=== PATIENT | female | born 1940 | race African-American/Black ===

== ENCOUNTER 2019-03-29 19:09 | Inpatient (IN) | payer OTHER ==
[~2019-03-29] VITALS: Ht 157.5 cm; Wt 45.0 kg
[2019-03-29 19:15] VITALS: Ht 157.5 cm; Wt 45.0 kg
--- NOTE | 2019-03-29 19:18 | ERD ---
ER Documentation Chief Complaint Chief Complaint Altered level consciousness HPI The patient is a 78-year-old female, presenting to the ER because of altered level of consciousness, unknown duration when the family found her. She is awake, able to speak her name.. The history was initially obtained from the EMS, later obtained from the daughter who did not live with her, does not know much about her medical problems. I was able to speak to [facility] physician who informed me that she was discharged from [facility] about 2 weeks ago for sepsis. She complains of right hip pain Past medical history: CAD, hypertension, hypothyroidism, history of CVA, atrial fibrillation, aortic stenosis, aortic insufficiency Past surgical history: Pacemaker, thyroidectomy ROS All systems reviewed and are negative except as per history of present illness. Allergies Allergies: Coded Allergies: Penicillins (Verified Allergy, 11/18/13) PMhx/Soc History of Surgery: Yes (PACEMAKER PLACEMENT 2008, THYROIDECTOMY) Hx Cardiac Disorders: Yes Hx Miscellaneous Medical Probl: Yes (HYPERTHYROID) Hx Alcohol Use: No Hx Substance Use: No Hx Tobacco Use: No Physical Exam Vitals Vital Signs Date Temp Pulse Resp B/P (MAP) Pulse Ox O2 O2 Flow FiO2 Time Delivery Rate 03/29/19 96.4 84 24 91/64 (73) 2 Nasal 22:13 Cannula 03/29/19 85 22 88/65 (73) Room Air 2.0 22:00 03/29/19 70 29 108/54 Nasal 2.0 21:45 (72) Cannula 03/29/19 77 32 131/94 Nasal 2.0 21:15 (106) Cannula 03/29/19 71 29 94/64 (74) Nasal 2.0 21:00 Cannula 03/29/19 103 18 94 Nasal 2.0 20:42 Cannula 03/29/19 94 2.0 20:42 03/29/19 77 58/46 (50) Nasal 2.0 20:30 Cannula 03/29/19 Rebreather 15 19:25 03/29/19 96.6 71 19 85/53 (64) 96 19:15 Physical Exam Const: No acute distress. Head: Atraumatic. Eyes: Normal Conjunctiva. ENT: Normal External Ears, Nose and Mouth. Neck: Full range of motion. No meningismus. Resp: Clear to auscultation bilaterally. Cardio: Regular rate and rhythm. Abd: Soft, non distended, normal bowel sounds, non tender. Skin: No petechiae or rashes. Back: No midline or flank tenderness. Ext: No cyanosis, or edema. Neur: Awake and alert. Limited exam Psych: Unable to perform due to her condition Result Diagram: 03/29/19192103/29/191927 Results 24 hrs Laboratory Tests Test 03/29/19 19:22 03/29/19 19:28 03/29/19 19:32 03/29/19 20:45 White Blood Count 10.1 10^3/ul Red Blood Count 4.06 10^6/ul Hemoglobin 11.2 g/dl Hematocrit 37.0 % Mean Corpuscular 91.1 fl Volume Mean Corpuscular 27.6 pg Hemoglobin Mean Corpuscular 30.3 g/dl Hemoglobin Concent Red Cell 17.5 % Distribution Width Platelet Count 215 10^3/UL Mean Platelet 11.1 fl Volume Immature 4.100 % Granulocytes % Neutrophils % 52.3 % Lymphocytes % 35.0 % Monocytes % 6.1 % Eosinophils % 1.6 % Basophils % 0.9 % Nucleated Red 0.0 /100WBC Blood Cells % Immature 0.410 10^3/ul Granulocytes # Neutrophils # 5.3 10^3/ul Lymphocytes # 3.5 10^3/ul Monocytes # 0.6 10^3/ul Eosinophils # 0.2 10^3/ul Basophils # 0.1 10^3/ul Nucleated Red 0.0 10^3/ul Blood Cells # Bedside Glucose 389 mg/dL 359 mg/dL Prothrombin Time 20.6 Sec Prothrombin Time 1.6 Ratio INR International 1.76 Normalized Ratio Activated 31.[address] Time Sodium Level 132 mmol/L Potassium Level 7.1 mmol/L Chloride Level 102 mmol/L Carbon Dioxide 15 mmol/L Level Anion Gap 15 Blood Urea 53 mg/dl Nitrogen Creatinine 2.48 mg/dl Est Glomerular mL/min Filtrat Rate mL/min Glucose Level 402 mg/dl Calcium Level 9.1 mg/dl Total Bilirubin 0.6 mg/dl Direct Bilirubin 0.00 mg/dl Indirect Bilirubin 0.6 mg/dl Aspartate Amino 43 IU/L Transf (AST/SGOT) Alanine 29 IU/L Aminotransferase ( ALT/SGPT) Alkaline 107 IU/L Phosphatase Ammonia < 9 umol/l Creatine Kinase 28 IU/L Troponin I 0.021 ng/ml Total Protein 7.1 g/dl Albumin 3.8 g/dl Globulin 3.30 g/dl Albumin/Globulin 1.15 Ratio Free Thyroxine 3.60 ug/ml Index Thyroxine (T4) 8.0 ug/dl Triiodothyronine 45.0 % (T3) Uptake Digoxin Level 3.0 ng/ml Salicylates Level < 1.0 mg/dl Acetaminophen < 10.0 ug/ml Level Ethyl Alcohol < 10.0 mg/dl Level POC Venous Lactate 4.2 mmol/L Test 03/29/19 21:22 03/29/19 21:33 Urine Color YELLOW Urine Clarity SLIGHTLY CLOUDY Urine pH 5.0 Urine Specific 1.016 [place] Urine Ketones NEGATIVE mg/dL Urine Nitrite NEGATIVE mg/dL Urine Bilirubin NEGATIVE mg/dL Urine Urobilinogen NEGATIVE mg/dL Urine Leukocyte NEGATIVE Elizaebth/ul Esterase Urine Microscopic 2 /HPF RBC Urine Microscopic 4 /HPF WBC Urine Squamous FEW /HPF Epithelial Cells Urine Bacteria FEW /HPF Urine Mucus FEW /HPF Urine Hemoglobin NEGATIVE mg/dL Urine Glucose NEGATIVE mg/dL Urine Total 2+ mg/dl Protein Urine Opiates NEGATIVE Screen Urine Barbiturates NEGATIVE Urine Amphetamines NEGATIVE Screen Urine NEGATIVE Benzodiazepines Screen Urine Cocaine NEGATIVE Screen Urine Cannabinoids NEGATIVE Lactic Acid Level 7.9 mmol/L Current Medications Medications Dose Sig/Jerri Start Time Status Last (Trade) Ordered Route PRN Stop Time Admin Dose Reason Admin Sodium 1,350 ml BOLUS OVER 2 03/29/19 DC 03/29/19 Chloride HOURS STAT 19:29 19:49 (NS) IV* 03/29/19 19:30 Vancomycin 250 ml @ ONCE ONCE 03/29/19 DC 03/29/19 HCl 125 mls/hr IVPB 20:00 22:02 03/29/19 21:59 50 ml @ ONCE STAT 03/29/19 DC 03/29/19 Meropenem/Sod 100 mls/hr IVPB 19:35 20:22 ium Chloride 03/29/19 20:04 Sodium 1,000 ml @ Q1H ONCE 03/29/19 DC 03/29/19 Chloride 1,000 mls/hr IV 20:30 20:22 03/29/19 21:29 250 ml @ TITRATE IV 03/29/19 03/29/19 Norepinephrin 1.875 mls/ 20:30 20:48 e hr Albuterol 10 mg ONCE STAT 03/29/19 DC 03/29/19 (Proventil INH 20:26 20:41 0.5% (Neb)) 03/29/19 20:36 Insulin 10 unit ONCE STAT 03/29/19 DC 03/29/19 Human IVP 20:26 20:46 Regular 03/29/19 20:36 (Humulin R) Dextrose ONCE PRN 03/29/19 (D50w IV DECREASED 20:30 Syringe) GLUCOSE 03/30/19 04:00 Sodium 50 ml ONCE STAT 03/29/19 DC 03/29/19 Bicarbonate IV 20:30 20:40 (Na Bicarb 03/29/19 20:36 8.4% Syg) Sodium 1,000 ml @ [id number] IV 03/29/19 Chloride 80 mls/hr 22:59 Ondansetron 4 mg Q6H PRN 03/29/19 HCl (Zofran IV NAUSEA 23:00 Inj) AND/OR VOMITING Albuterol/ 3 ml Q4H RESP 03/30/19 Ipratropium THERAPY NEB 01:00 (Duoneb) 650 mg Q6H PRN 03/29/19 Acetaminophen PO PAIN 23:00 (Tylenol LEVEL 1-3 OR Liquid) FEVER 40 mg DAILY@06 03/30/19 Pantoprazole IV 06:00 (Protonix Iv) Vancomycin VANCOMYCIN PER 03/30/19 UNV HCl (Vanco PER PHARMACY PROTOCOL XX 00:00 Iv Per Pharmacy) Calcium 110 ml @ ONCE ONCE 03/30/19 Gluconate 1 110 mls/hr IVPB 00:00 gm/Dextrose 03/30/19 00:59 Discontinue PROTOCOL 03/30/19 Miscellaneous all previ... ONCE XX 00:00 03/30/19 00:01 Information (* Miscellaneous Pharmacy Order) Diagnostic 1 ea Q1H XX 03/30/19 Test (Pha) 00:00 (Accu-Chek) Insulin 100 ml @ 0 PER 03/30/19 Human mls/hr PROTOCOL IV 00:00 Regular 100 unit/ Sodium Chloride Treatment Per 03/30/19 Miscellaneous of protocol XX 00:00 Hypoglycemia: Information 1.BG 51... (* Miscellaneous Pharmacy Order) Dextrose 25 ml Q15M PRN 03/30/19 (D50w IV 00:00 Syringe) .DECREASED GLUCOSE Dextrose 50 ml Q15M PRN 03/30/19 (D50w IV 00:00 Syringe) .DECREASED GLUCOSE Sodium 500 ml @ Q1H ONCE 03/30/19 Chloride 500 mls/hr IV 00:00 03/30/19 00:59 Procedures/MDM [place] [address] Radiology Main Line: [phone] DIAGNOSTIC IMAGING REPORT Patient: KWAN MORAN : 1940 Age: 78 Sex: F MR #: [id number] DOS: 03/29/191937 Ordering MD: NADIA GARCIA MD Location: E/R Room/Bed: PROCEDURE: XR Hip. CLINICAL INDICATION: pain TECHNIQUE: AP and frog lateral views of the right hip were performed. COMPARISON: None. FINDINGS: No evidence of acute fracture, allowing for osteopenia. No dislocation. Mild to moderate arthrosis of the hip joint. Soft tissue calcifications over the gluteal soft tissues. IMPRESSION: No evidence of acute fracture or dislocation. Mild to moderate degenerative joint disease. RPTAT: HRGF Physician Brittany Date Time Electronically viewed and signed by Delores Stein Physician on 03/29/2019 20: 41 RF/ CC: NADIA GARCIA MD [id number] [place] [id number] Radiology Main Line: [phone] DIAGNOSTIC IMAGING REPORT Patient: KWAN MORAN : 1940 Age: 78 Sex: F MR #: [id number] DOS: 03/29/191937 Ordering MD: NADIA GARCIA MD Location: E/R Room/Bed: PROCEDURE: Pelvis x-ray CLINICAL INDICATION: pain TECHNIQUE: Single AP view of the pelvis performed. COMPARISON: None FINDINGS: No acute fracture detected, allowing for osteopenia. Mild to moderate degenerate joint disease. No acute abnormality of the soft tissues. IMPRESSION: No fracture detected, however evaluation is limited by osteopenia. 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 RPTAT: HRGF Physician Brittany Date Time Electronically viewed and signed by Delores Stein Physician on 03/29/2019 20:42 RF/ CC: NADIA GARCIA MD [id number] [place] [address] Radiology Main Line: [phone] DIAGNOSTIC IMAGING REPORT Patient: KWAN MORAN : 1940 Age: 78 Sex: F MR #: [id number] DOS: 03/29/191918 Ordering MD: NADIA GARCIA MD Location: E/R Room/Bed: PROCEDURE: CT Brain without contrast. CLINICAL INDICATION: Altered level of consciousness TECHNIQUE: A CT of the brain was performed on a multidetector CT scanner utilizing axial imaging from the skull base through the vertex without IV contrast. Multiplanar reformatted images were made. Images were reviewed on a PACS workstation. The CTDIvol is 40 mGy and the DLP is 634 mGycm. DICOM images are available. One or more of the following dose reduction techniques were utilized: 1.) Automated exposure control 2.) Adjustment of the mA +/- kV according to patient's size 3.) Use of iterative reconstruction technique. COMPARISON: Head CT November 18, 2013 FINDINGS: There has been interval insertion of an embolization coil in the vicinity of the origin of the right posterior communicating artery. No discrete extra-axial fluid collection or masses present. There is moderate diffuse cerebral volume loss with sulcal and ventricular dilatation. Ventricles are in the midline and of normal configuration. Noted is encephalomalacia and an old infarct on the inferolateral posterior left frontal lobe extending into the anterior operculum. Second chronic cortical and subcortical white matter infarct is noted in the inferolateral posterior left frontal lobe. There is a third chronic infarct involving aj and subcortical white matter of the left occipita l lobe. Periventricular white matter disease is present in both cerebral hemispheres. There is no associated mass effect. There is preservation of normal aj-white differentiation. No intracranial hemorrhage is seen. There is normal aeration in the paranasal sinuses. IMPRESSION: No acute abnormality. No intracranial hemorrhage, mass or evidence of acute transcortical infarct. 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 Clinical correlation suggested. Chronic infarct inferolateral posterior left frontal lobe, posterior lateral left frontal lobe extending into the insula and left occipital lobe each of which demonstrates encephalomalacia. .Hakan Shultz MD, Date Time Electronically viewed and signed by .Hakan Shultz MD, MD on 03/29/2019 22:34 .A/ CC: NADIA GARCIA MD [id number] [place] [address] Radiology Main Line: [phone] DIAGNOSTIC IMAGING REPORT Patient: KWAN MORAN : 1940 Age: 78 Sex: F MR #: [id number] DOS: 03/29/191918 Ordering MD: NADIA GARCIA MD Location: E/R Room/Bed: PROCEDURE: XR Chest. CLINICAL INDICATION: Sepsis TECHNIQUE: Frontal chest x-ray was obtained. COMPARISON: Chest x-ray November 18, 2013 FINDINGS: The heart is enlarged. Mediastinum is not widened. No hilar masses seen. Lungs are clear of any infiltrates. There is no effusion or pneumothorax. The osseous structures appear normal. There is a dual lead pacemaker. Clips are seen at the right base of the neck. IMPRESSION: Cardiomegaly. No pneumonia or failure. .Hakan Shultz MD, Date Time Electronically viewed and signed by .Hakan Shultz MD, on 03/29/2019 20:19 .A/ CC: NADIA GARCIA MD [id number] EKG: Read by emergency physician Rate/Rhythm: Paced rhythm at 70 beats/min No further attempt to interpret the EKG MEDICAL MAKING DECISION: The patient is a 78-year-old female, presenting with acute encephalopathy, acute septic shock, acute kidney injury, acute hyperkalemia, acute digoxin toxicity. He was treated with normal saline 30 mm/kg IV, meropenem IV, vancomycin IV Levophed drip for acute septic shock, Nix catheter for acute kidney injury, albuterol 10 mg nebulizer/10 units of regular insulin/1 amp of them back off IV for acute hypokalemia (she does not require D50 because her glucose was 402) The differential diagnoses considered include but are not limited to septic encephalopathy, metabolic encephalopathy, UTI, pneumonia, aspiration pneumonia, TIA, CVA MDM: Patient's infectious symptoms have not stabilized and the patient is at risk of rapid decompensation. The patient will be admitted for careful hydration, antibiotic therapy, and infectious source control. SEVERE SEPSIS CRITERIA: Infectious source: unknown End organ damage indicated by: [Lactate > 2.0 mmol/L Hypotension (SBP < 90 or >40 mmHG drop or MAP < 65) SEPSIS MANAGEMENT Time of recognition of septic shock: 7:35p 3 HOUR BUNDLE Blood cultures x 2 before broad-spectrum antibiotics: [Yes] 30 ml/kg NS bolus [Completed] Initial lactate []4.2 Repeat lactate Pending SEPTIC SHOCK ASSESSMENT: Y lactic acid > 4.0 Y Persistent hypotension (SBP < 90 or 40 mmHg drop, MAP < 65) despite 30 mL/kg IV fluid bolus VOLUME REASSESSMENT FOR SEPTIC SHOCK: Reevaluation Time: []22:00 hr Temp []96.6, BP []88/65, HR [], RR[]85, Pox []95% 2L Heart [Regular rate & rhythm] Lungs [No crackles] Skin [Warm & dry] Cap Refill [Less than 2 seconds] Peripheral pulses [Radially present] PERSISTENT HYPOTENSION TREATMENT: Comfort care Y Central line RIJ Vasopressor started Levophed drip I considered further perfusion assessment with CVP measurement, SCVO2, bedside ultrasound volume assessment, passive leg raise, trial of further fluid bolus. And proceeded with [30 ml/kg fluid bolus of NSS, broad spectrum antibiotics, and admission.] CRITICAL CARE Critical care time [35] minutes Emergent fluid management while maintaining close respiratory support. Provision of immediate and broad-spectrum antibiotic therapy. Simultaneous assessment for possible sources in order to direct targeted therapy. Consi deration for invasive and chemical support to prevent cardiopulmonary collapse. Critical care time is independent of procedures performed. Central Line Placement by me: After the patient was consented and a time out was performed, appropriate hand hygiene was performed, the skin site was fully prepped and maximal sterile barrier technique was employed where the patient was sterilely draped, and the provider wore a mask and sterile gown and gloves. Anesthesia: 1% lidocaine locally Location: RIJ We could not advance the wire even though there are good venous return from the angiocatheter. She now has has a good rapid IJ angiocatheter for usage. ED Ultrasound: Central line placed by me using concurrent ultrasound guidance done using sterile technique. Real time image archived in the medical record confirms vascular anatomy. Departure Diagnosis: Primary Impression: Septic shock Additional Impressions: Hyperkalemia YAN (acute kidney injury) Digoxin toxicity Encephalopathy acute Anemia NADIA GARCIA MD March 29, 2019 19:18
[2019-03-29] MEDS ORDERED: SODIUM CHLORIDE 0.9% 1L BAG IV* STA (19:29)
[2019-03-29] MEDS ORDERED: MEROPENEM 1 GM/50ML(PMX) 50 ML IVPB STA (19:35)
[2019-03-29] MEDS ORDERED: VANCOMYCIN 1 GM (PMX) 250 ML IVPB ONE (20:00)
[2019-03-29] MEDS ORDERED: INSULIN REGULAR, HUMAN 100 UNIT/1 ML 3ML VIAL IVP STA (20:26)
[2019-03-29] MEDS ORDERED: ALBUTEROL 0.5% (NEB) 2.5 MG/0.5 ML AMP INH STA (20:26)
[2019-03-29] MEDS ORDERED: NORepinephrine 8MG/250 ML (PMX 250 ML IV SCH (20:30)
[2019-03-29] MEDS ORDERED: DEXTROSE 50% 50 ML SYRINGE IV PRN (20:30)
[2019-03-29] MEDS ORDERED: NA BICARBONATE 8.4% 50 ML SYG IV STA (20:30)
[2019-03-29] MEDS ORDERED: SOD CHLORIDE 0.9% 1,000 ML IV ONE (20:30)
[2019-03-29] MEDS ORDERED: ONDANSETRON 4 MG INJ IV PRN (23:00)
[2019-03-29] MEDS ORDERED: ACETAMINOPHEN 650MG/20.3ML CUP PO PRN (23:00)
[2019-03-30] VITALS (52 sets, daily range): BP systolic 85–161; BP diastolic 43–110; PULSE 70–121; RESP 13–34
[2019-03-30] MEDS ORDERED: INSULIN HUMAN REGULAR 100 UNIT in SOD CHLORIDE 0.9% 99 ML IV SCH ×2
[2019-03-30] MEDS ORDERED: VANCOMYCIN IV PER PHARMACY XX SCH
[2019-03-30] MEDS ORDERED: CALCIUM GLUCONATE 10% 1 GM in DEXTROSE 5% 100 ML IVPB ONE ×2
[2019-03-30] MEDS ORDERED: SOD CHLORIDE 0.9% 500 ML IV ONE
[2019-03-30] MEDS: SOD CHLORIDE 0.9% 1,000 ML IV SCH ×2 (00:38→12:57)
[2019-03-30] MEDS ORDERED: DIGO125T PO (00:44)
[2019-03-30] MEDS ORDERED: LOSA50TA14 PO (00:44)
[2019-03-30] MEDS ORDERED: PRAM0.12 PO (00:44)
[2019-03-30] MEDS ORDERED: FAMO20TA18 PO (00:44)
[2019-03-30] MEDS ORDERED: CEFP200T2 PO (00:44)
[2019-03-30] MEDS ORDERED: VERA240T13 PO (00:44)
[2019-03-30] MEDS ORDERED: ATOR20TA65 PO (00:44)
[2019-03-30] MEDS ORDERED: METO-429 PO (00:44)
[2019-03-30] MEDS ORDERED: POTA10TA2 PO (00:44)
[2019-03-30] MEDS ORDERED: HYDR25TA6 PO (00:44)
[2019-03-30] MEDS ORDERED: MONT10TA24 PO (00:44)
--- NOTE | 2019-03-30 00:57 | HP ---
Date/Time of Note Date/Time of Note DATE: 03/30/19 TIME: 00:56 Assessment/Plan VTE Prophylaxis SCD applied (from Nsg): Yes Pharmacological prophylaxis: NA/contraindicated Pharm contraindication: low risk/ambulating Lines/Catheters IV Catheter Type (from Nrsg): Central Line Central line still needed: Yes (critical condition) Urinary Cath still in place: Yes Reason Cath still needed: other (indicate) (critical condition) Assessment/Plan Hospital Course This is a 78-year-old female being admitted to the ICU floor for: #1 septic shock: Broad-spectrum antibiotic to vancomycin and meropenem, patient has a penicillin allergy. Source unknown at the current time. Will await culture results. Patient started on pressor support with levophed. Trend lactic acid levels initial was elevated at 7. IV fluid hydration with normal saline. #2 suspect digoxin toxicity: Patient's digoxin level was 3. Patient did present with hyperkalemia 7. Currently is a paced rhythm. We will give the patient a dose of DigiFab 0.5. We will check a digoxin level in the a.m. Monitor closely in the ICU. Will consult cardiology. #3 hyperkalemia: Secondary to digoxin, acute on chronic kidney injury, potassium supplements patient did receive insulin dextrose and albuterol in the emergency department. I will give a dose of calcium gluconate. We will repeat BMP and assess potassium levels and treat as indicated. #4 acute versus acute on chronic kidney disease: Previous Creatinine was from 2013. Will treat with IV fluid hydration. Will monitor renal function test. We will check a renal ultrasound. Urine microscope and urinalysis. We will t reat the potassium with the above. #5 hyponatremia: Likely secondary dehydration. Will hydrate patient with normal saline. Monitor sodium levels. #6 uncontrolled blood sugars: Patient does not appear to be in any DKA. We will put the patient on insulin GGT, will check hemoglobin A1c #7 metabolic acidosis: Secondary likely to underlying septic shock, acute on chronic kidney disease. She does not appear to be DKA. Will treat with IV fluids, antibiotics and monitor. #8 history of atrial fibrillation: Patient is currently paced rhythm: We will hold dig secondary to elevated digoxin levels. Will treat with DigiFab. Currently not on any anticoagulation #9 coronary artery disease: We will need to confirm patient's home medications and resume as indicated we will check an echocardiogram. #10 hypothyroidism: We will check a TSH, will need to confirm patient's home medications #11 history of CVA: Patient appears to be bedridden. #12 aortic stenosis: We will check an echocardiogram. #13 DVT GI prophylaxis: SCDs, Protonix Further treatment strategy will be implemented as per the clinical course. Greater than 45 minutes [facility] Result Diagram: 03/29/19192103/29/198 Results 24hrs Laboratory Tests Test 03/29/19 19:22 03/29/19 19:28 03/29/19 19:32 03/29/19 20:45 White Blood 10.1 Count Red Blood Count 4.06 L Hemoglobin 11.2 L Hematocrit 37.0 Mean Corpuscular 91.1 Volume Mean Corpuscular 27.6 L Hemoglobin Mean Corpuscular 30.3 L Hemoglobin Divya nt Red Cell 17.5 H Distribution Width Platelet Count 215 Mean Platelet 11.1 H Volume Immature 4.100 H Granulocytes % Neutrophils % 52.3 Lymphocytes % 35.0 Monocytes % 6.1 Eosinophils % 1.6 Basophils % 0.9 Nucleated Red 0.0 Blood Cells % Immature 0.410 H Granulocytes # Neutrophils # 5.3 Lymphocytes # 3.5 H Monocytes # 0.6 Eosinophils # 0.2 Basophils # 0.1 Nucleated Red 0.0 Blood Cells # Bedside Glucose 389 H 359 H Prothrombin Time 20.6 H Prothrombin Time 1.6 Ratio INR 1.76 International Normalized Ratio Activated 31.5 Partial Thrombop last Time Sodium Level 132 L Potassium Level 7.1 *H Chloride Level 102 Carbon Dioxide 15 L Level Anion Gap 15 H Blood Urea 53 H Nitrogen Creatinine 2.48 H Est Glomerular Filtrat Rate mL/min Glucose Level 402 *H Calcium Level 9.1 Total Bilirubin 0.6 Direct Bilirubin 0.00 Indirect 0.6 Bilirubin Aspartate Amino 43 Transf (AST/SGOT ) Alanine 29 Aminotransferase (ALT/SGPT) Alkaline 107 Phosphatase Ammonia < 9 L Creatine Kinase 28 Troponin I 0.021 Total Protein 7.1 Albumin 3.8 Globulin 3.30 H Albumin/Globulin 1.15 Ratio Free Thyroxine 3.60 Index Thyroxine (T4) 8.0 Triiodothyronine 45.0 H (T3) Uptake Digoxin Level 3.0 *H Salicylates < 1.0 L Level Acetaminophen < 10.0 L Level Ethyl Alcohol < 10.0 H Level POC Venous 4.2 *H Lactate Test 03/29/19 21:22 03/29/19 21:33 03/29/19 22:59 03/29/19 23:34 Urine Color YELLOW Urine Clarity SLIGHTLY CLOUDY A Urine pH 5.0 Urine Specific 1.016 [place] Urine Ketones NEGATIVE Urine Nitrite NEGATIVE Urine Bilirubin NEGATIVE Urine NEGATIVE Urobilinogen Urine Leukocyte NEGATIVE Esterase Urine 2 Microscopic RBC Urine 4 Microscopic WBC Urine Squamous FEW Epithelial Cells Urine Bacteria FEW A Urine Mucus FEW A Urine Hemoglobin NEGATIVE Urine Glucose NEGATIVE Urine Total 2+ H Protein Urine Opiates NEGATIVE Screen Urine NEGATIVE Barbiturates Urine NEGATIVE Amphetamines Screen Urine NEGATIVE Benzodiazepines Screen Urine Cocaine NEGATIVE Screen Urine NEGATIVE Cannabinoids Lactic Acid 7.9 *H 7.1 *H Level Blood Gas Blood arterial Specimen Source Arterial Blood 03/29/2019 11:48 Date Drawn :00 PM Arterial Blood 7.280 *L pH (Temp corrected) Arterial Blood 50.2 H pCO2 (Temp correct) Arterial Blood 58.5 L pO2 (Temp corrected) Arterial Blood 23.1 HCO3 Arterial Blood -4.1 L Base Excess Arterial Blood 85.6 L Oxygen Saturatio n Rush Test N/A Arterial Blood LB Gas Puncture Site Arterial 0.1 Blood Carboxyhem oglobin Arterial Blood 0.2 Methemoglobin Blood Gas A-a O2 161.7 H Differential Oxyhemoglobin 85.3 L Percent Blood Gas 37.0 Temperature Blood Gas NASAL CANNULA Modality FiO2 39.0 Blood Gas Franck PETTY RN Critical Value Read Back Blood Gas RR Notified Whom Blood Gas 03/30/2019 12:00 Notified Time :00 AM HPI/ROS Admit Date/Time Admit Date/Time Hx of Present Illness cc: altered Chief the following history was obtained from the ED physician documentation, as patient was unable to give adequate history given her clinical condition The patient is a 78-year-old female, presenting to the ER because of altered level of consciousness, unknown duration when the family found her. Patient was awake and alert at the bedside, she was able to state her name. As per the ED physician, the history was initially obtained from the EMS, later obtained from the daughter who did not live with her, does not know much about her medical problems. I was able to speak to [facility] physician who informed ED physician that she was discharged from [facility] about 2 weeks ago for sepsis. Patient also was complaining of right hip pain. Patient was noted to be in sepsis with severely elevated lactic acid. Patient also had a digoxin level that was drawn which came back elevated at 3. Patient was started on levophed, central line was also placed by the ED physician. Allergies: Penicillin Medications: See MAR ROS Subjective hx not possible: pt critical status (Unable to provide adequate history, patient alert) PMH/Family/Social Past Medical History CAD, hypertension, hypothyroidism, history of CVA, atrial fibrillation, aortic stenosis Medications Current Medications Norepinephrine 250 ml @ 1.875 mls/ hr TITRATE IV Last administered on 03/29/19at 20:48; Admin Dose 1.875 MLS/HR; Start 03/29/19 at 20:30 Dextrose (D50w Syringe) ONCE PRN IV DECREASED GLUCOSE; Start 03/29/19 at 20:30; Stop 03/30/19 at 04:00 Sodium Chloride 1,000 ml @ 80 mls/hr [id number] IV Last administered on 03/30/19at 00:38; Admin Dose 80 MLS/HR; Start 03/29/19 at 22:59 Ondansetron HCl (Zofran Inj) 4 mg Q6H PRN IV NAUSEA AND/OR VOMITING; Start 03/29/19 at 23:00 Albuterol/ Ipratropium (Duoneb) 3 ml Q4H RESP THERAPY NEB ; Start 03/30/19 at 01:00 Acetaminophen (Tylenol Liquid) 650 mg Q6H PRN PO PAIN LEVEL 1-3 OR FEVER; Start 03/29/19 at 23:00 Pantoprazole (Protonix Iv) 40 mg DAILY@06 IV ; Start 03/30/19 at 06:00 Vancomycin HCl (Vanco Iv Per Pharmacy) VANCOMYCIN PER PHARMACY PER PROTOCOL XX ; Start 03/30/19 at 00:00 Calcium Gluconate 1 gm/Dextrose 110 ml @ 110 mls/hr ONCE ONCE IVPB Last administered on 03/30/19at 00:54; Admin Dose 110 MLS/HR; Start 03/30/19 at 00:00; Stop 03/30/19 at 00:59 Diagnostic Test (Pha) (Accu-Chek) 1 ea Q1H XX ; Start 03/30/19 at 00:00 Insulin Human Regular 100 unit/ Sodium Chloride 100 ml @ 0 mls/hr PER PROTOCOL IV ; Start 03/30/19 at 00:00 Miscellaneous Information (* Miscellaneous Pharmacy Order) Treatment of Hypoglycemia: 1.BG 51... Per protocol XX ; Start 03/30/19 at 00:00 Dextrose (D50w Syringe) 25 ml Q15M PRN IV .DECREASED GLUCOSE; Start 03/30/19 at 00:00 Dextrose (D50w Syringe) 50 ml Q15M PRN IV .DECREASED GLUCOSE; Start 03/30/19 at 00:00 Sodium Chloride 500 ml @ 500 mls/hr Q1H ONCE IV Last administered on 03/30/19at 00:38; Admin Dose 500 MLS/HR; Start 03/30/19 at 00:00; Stop 03/30/19 at 00:59 Digoxin Immune MARIA VICTORIA 0.5 vial/ Sodium Chloride 50 ml @ 100 mls/hr ONCE ONCE IVPB ; Start 03/30/19 at 01:00; Stop 03/30/19 at 01:29; Status UNV Coded Allergies: Penicillins (Unverified Allergy, Unknown, 03/30/19) Past Surgical History pacemaker, thyroidectomy Family History Significant Family History: other (Unknown) Social History Smoking Status: Unknown if ever smoked Drug Use: none Exam/Review of Systems Vital Signs Vitals Vital Signs Date Temp Pulse Resp B/P (MAP) Pulse Ox O2 O2 Flow FiO2 Time Delivery Rate 03/30/19 78 79/52 (61) Nasal 2.0 00:34 Cannula 03/30/19 31 00:00 03/29/19 96.4 2 22:13 Intake and Output 03/29/19 03/29/19 03/30/19 1515:00 23:00 07:00 IntakeIntake Total 2300 ml BalanceBalance 2300 ml Exam Exam General: Patient currently lying in bed in no acute distress, she does appear cold to touch HEENT: Atraumatic, normocephalic. The pupils are equal, round and reactive. Extraocular motor are intact Neck: Supple with full range of motion. No rigidity or meningismus Chest: Nontender, right subclavian central line Lungs: Clear to auscultation bilaterally no crackles rales or wheezing Heart: Paced rhythm Abdomen: Soft , nontender, nondistended , bowel sounds are present. No guarding no rebound tenderness , No masses or organomegaly. No costovertebral temporal angle mass Extremities: Normal to inspection, no edema no cyanosis Neurologic: Normal mental status, speech normal, cranial nerves II through XII are intact, motor and sensory are intact, Additional Comments PROCEDURE: XR Hip. CLINICAL INDICATION: pain TECHNIQUE: AP and frog lateral views of the right hip were performed. COMPARISON: None. FINDINGS: No evidence of acute fracture, allowing for osteopenia. No dislocation. Mild to moderate arthrosis of the hip joint. Soft tissue calcifications over the gluteal soft tissues. IMPRESSION: No evidence of acute fracture or dislocation. Mild to moderate degenerative joint disease. RPTAT: HRGF Physician Brittany Date Time Electronically viewed and signed by Physician Brittany on 03/29/2019 20 :41 RF/ CC: NADIA GARCIA MD [id number] PROCEDURE: Pelvis x-ray CLINICAL INDICATION: pain TECHNIQUE: Single AP view of the pelvis performed. COMPARISON: None FINDINGS: No acute fracture detected, allowing for osteopenia. Mild to moderate degenerate joint disease. No acute abnormality of the soft tissues. IMPRESSION: No fracture detected, however evaluation is limited by osteopenia. 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 RPTAT: HRGF Physician Brittany Date Time Electronically viewed and signed by Physician Brittany on 03/29/2019 20:42 RF/ CC: NADIA GARCIA MD [id number] PROCEDURE: CT Brain without contrast. CLINICAL INDICATION: Altered level of consciousness TECHNIQUE: A CT of the brain was performed on a multidetector CT scanner utilizing axial imaging from the skull base through the vertex without IV contrast. Multiplanar reformatted images were made. Images were reviewed on a PACS workstation. The CTDIvol is 40 mGy and the DLP is 634 mGycm. DICOM images are available. One or more of the following dose reduction techniques were utilized: 1.) Automated exposure control 2.) Adjustment of the mA +/- kV according to patient's size 3.) Use of iterative reconstruction technique. COMPARISON: Head CT November 18, 2013 FINDINGS: There has been interval insertion of an embolization coil in the vicinity of the origin of the right posterior communicating artery. No discrete extra-axial fluid collection or masses present. There is moderate diffuse cerebral volume loss with sulcal and ventricular dilatation. Ventricles are in the midline and of normal configuration. Noted is encephalomalacia and an old infarct on the inferolateral posterior left frontal lobe extending into the anterior operculum. Second chronic cortical and subcortical white matter infarct is noted in the inferolateral posterior left frontal lobe. There is a third chronic infarct involving aj and subcortical white matter of the left occipital lobe. Periventricular white matter disease is present in both cerebral hemispheres. There is no associated mass effect. There is preservation of normal aj-white differentiation. No intracranial hemorrhage is seen. There is normal aeration in the paranasal sinuses. IMPRESSION: No acute abnormality. No intracranial hemorrhage, mass or evidence of acute transcortical infarct. 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 Clinical correlation suggested. Chronic infarct inferolateral posterior left frontal lobe, posterior lateral left frontal lobe extending into the insula and left occipital lobe each of which demonstrates encephalomalacia. .Hakan Shultz MD, Date Time Electronically viewed and signed by .Hakan Shultz MD, on 03/29/2019 22:34 .A/ CC: NADIA GARCIA MD [id number] PROCEDURE: XR Chest. CLINICAL INDICATION: Sepsis TECHNIQUE: Frontal chest x-ray was obtained. COMPARISON: Chest x-ray November 18, 2013 FINDINGS: The heart is enlarged. Mediastinum is not widened. No hilar masses seen. Lungs are clear of any infiltrates. There is no effusion or pneumothorax. The osseous structures appear normal. There is a dual lead pacemaker. Clips are seen at the right base of the neck. IMPRESSION: Cardiomegaly. No pneumonia or failure. .Hakan Shultz MD, Date Time Electronically viewed and signed by .Hakan Shultz MD, on 03/29/2019 20:19 .A/ CC: NADIA GARCIA MD [id number] MILVIA GRAY March 30, 2019 00:57
[2019-03-30] MEDS ORDERED: DIGOXIN IMMUNE FAB (OVINE) 0.5 VIAL in SOD CHLORIDE 0.9% 50 ML IVPB ONE ×2 (01:00→09:00)
[2019-03-30] MEDS: ALBUTEROL/IPRATROPIUM (NEB) 3 ML AMP NEB SCH ×6 (01:00→22:09)
[2019-03-30] MEDS ORDERED: PHENYLephrine 20MG IN 250 ML 250 ML IV SCH (01:00)
[2019-03-30] MEDS: ACCU-CHEK XX SCH ×10 (01:00→20:00)
--- NOTE | 2019-03-30 01:37 | EN ---
Date/Time of Note Date/Time of Note DATE: 03/30/19 TIME: 01:36 ER Progress Note On-call radiology called to notify me that the central line was pointing cephalad and will need to be repositioned/replaced. I spoke to the patient and let her know the urgency of the situation and consented her verbally for a right subclavian line given that her blood pressure was precipitously low. Central Line Placement by me: Patient consented, sterilely draped, full prep, gown, glove, mask, time out performed. Anesthesia: 1% lidocaine locally Location: Right subclavian Device: Multiple lumen Technique: Seldinger technique. Secured with suture. Results: Venous return from all ports with easy saline flush. No complications. wire retrieved and disposed of. [Chest X-ray 1V Interpreted by me: Central line in SVC, Normal soft tissue, No evidence of pneumothorax.] LO MUIR March 30, 2019 01:37
[2019-03-30] MEDS ORDERED: ALBUTEROL 0.083% (NEB) 2.5 MG/3 ML AMP HHN ONE (02:48)
[2019-03-30] MEDS ORDERED: INSULIN REGULAR, HUMAN 100 UNIT/1 ML 3ML VIAL IVP ONE (02:52)
[2019-03-30] MEDS ORDERED: DEXTROSE 50% 50 ML SYRINGE IV PRN ×3 (03:00)
[2019-03-30] MEDS ORDERED: SODIUM POLYSTYRENE 15 GM KIT (POWDER + SORBITOL) PO ONE (03:00)
[2019-03-30] MEDS ORDERED: PANTOPRAZOLE 40 MG INJ IV SCH (06:00)
--- NOTE | 2019-03-30 07:59 | CONS ---
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 neck is supple doubt pt has meningitis AMS can be part of her dig toxicity 2) sepsis with elevated lactic acid continue with vanco/merrem but currently not finding a source for an infection CXR was neg, u/a was fairly benign too, abd exam is unimpressive and doubt she has meningitis hypoperfusion is part of dig toxicity and may be the cause of her elevated lactic acid I have ordered procalcitonin 3) Dig toxicity with elevated potassium AMS and hypoperfusion are also the hallmarks for dig toxicity 4) renal insufficiency no baseline creatinine is noted but in light of dig toxicity there is likely an acute component u/a does not suggest infection 5) hypothermia this has improved and cause is not elucidated yet 6) CAD with pacer troponin was neg 7) hypothyroidism Consultation Date/Type/Reason Admit Date/Time Date of Consultation: March 30, 2019 Type of Consult ID Date/Time of Note DATE: 03/30/19 TIME: 07:49 Hx of Present Illness pt was admitted due to AMS pt is reported to live with son but son has not called back to hospital no reports of vomiting pt says yes to everything, so unable to get hx from pt no diarrhea reported pt is agitated but looks comfortable Past Medical History CAD, HTN, hypothyroidsim, CVA, a-fib, Aostenosis Home Meds Reported Medications Cefpodoxime Proxetil* (Cefpodoxime Proxetil*) 200 Mg Tablet, 200 MG PO Q12H 03/30/19 Hydrochlorothiazide (Hydrochlorothiazide) 25 Mg Tablet, 25 MG PO QAM for 100 Days, #50 03/30/19 Potassium Chloride (K-Tab) 10 Meq Tablet.sa, 30 MEQ PO BID for 100 Days, #600 03/30/19 Verapamil Hcl* (Verapamil ER*) 240 Mg Tablet.er, 240 MG PO QAM for 100 Days, #100 03/30/19 Montelukast Sodium* (Montelukast Sodium*) 10 Mg Tablet, 10 MG PO DAILY for 90 Days, #90 03/30/19 Losartan Potassium* (Losartan Potassium*) 50 Mg Tablet, 50 MG PO BID for 23 Days, #46 03/30/19 Famotidine* (Famotidine*) 20 Mg Tablet, 20 MG PO BID for 23 Days, #46 03/30/19 Digoxin* (Digitek*) 125 Mcg Tablet, 125 MCG PO QAM for 7 Days 03/30/19 Metoprolol Tartrate* (Lopressor*) 50 Mg Tab, 50 MG PO BID for 23 Days, #46 03/30/19 Atorvastatin Calcium (Atorvastatin Calcium) 20 Mg Tablet, 20 MG PO DAILY for 23 Days, #23 03/30/19 Pramipexole* (Pramipexole*) 0.125 Mg Tablet, 1 TAB PO BID TAKE 1 TABLET MY MOUTH ABOUT 45MIN AFTER DINNER and TAKE 1 TAB BEFORE SLEEP 03/30/19 Medications Current Medications Norepinephrine 250 ml @ 1.875 mls/ hr TITRATE IV Last administered on 03/29/19at 20:48; Admin Dose 1.875 MLS/HR; Start 03/29/19 at 20:30 Sodium Chloride 1,000 ml @ 80 mls/hr [id number] IV Last administered on 03/30/19at 00:38; Admin Dose 80 MLS/HR; Start 03/29/19 at 22:59 Ondansetron HCl (Zofran Inj) 4 mg Q6H PRN IV NAUSEA AND/OR VOMITING; Start 03/29/19 at 23:00 Albuterol/ Ipratropium (Duoneb) 3 ml Q4H RESP THERAPY NEB Last administered on 03/30/19at 06:01; Admin Dose 3 ML; Start 03/30/19 at 01:00 Acetaminophen (Tylenol Liquid) 650 mg Q6H PRN PO PAIN LEVEL 1-3 OR FEVER; Sta rt 03/29/19 at 23:00 Pantoprazole (Protonix Iv) 40 mg DAILY@06 IV Last administered on 03/30/19at 06: 00; Admin Dose 40 MG; Start 03/30/19 at 06:00 Vancomycin HCl (Vanco Iv Per Pharmacy) VANCOMYCIN PER PHARMACY PER PROTOCOL XX ; Start 03/30/19 at 00:00 Miscellaneous Information (* Miscellaneous Pharmacy Order) Treatment of Hypoglycemia: 1.BG 51... Per protocol XX ; Start 03/30/19 at 00:00 Dextrose (D50w Syringe) 25 ml Q15M PRN IV .DECREASED GLUCOSE Last administered on 03/30/19at 03:29; Admin Dose 25 ML; Start 03/30/19 at 00:00 Dextrose (D50w Syringe) 50 ml Q15M PRN IV .DECREASED GLUCOSE; Start 03/30/19 at 00:00 Phenylephrine HCl 250 ml @ 75 mls/hr TITRATE IV ; Start 03/30/19 at 01:00 Dextrose (D50w Syringe) ONCE PRN IV DECREASED GLUCOSE; Start 03/30/19 at 03:00 Diagnostic Test (Pha) (Accu-Chek) 1 ea Q4H XX ; Start 03/30/19 at 08:00 Allergies: Coded Allergies: Penicillins (Unverified Allergy, Unknown, 03/30/19) Past Surgical History thyroidectomy, pacer Social History Smoking Status: Unknown if ever smoked Drug Use: none Exam/Review of Systems Exam Vitals Vital Signs Date Temp Pulse Resp B/P (MAP) Pulse Ox O2 O2 Flow FiO2 Time Delivery Rate 03/30/19 77 19 100 07:00 03/30/19 111/61 06:45 (78) 03/30/19 21 06:02 03/30/19 97.4 04:00 03/30/19 Nasal 2.0 02:30 Cannula Intake and Output 03/29/19 03/29/19 03/30/19 1515:00 23:00 07:00 IntakeIntake Total 2300 ml 396.95 ml OutputOutput Total 120 ml BalanceBalance 2300 ml 276.95 ml Constitutional: alert, other (pt was calm at first but got more agitated with time) Head: normocephalic Eyes: nl sclera ENMT: mucosa pink and moist, other (neck was supple) Respiratory: clear to auscultation Cardiovascular: regular rate and rhythm Gastrointestinal: soft, non-tender Musculoskeletal: nl extremities to inspection Neurological: other (moves all extremities) Skin: other (stage II reported on coccyx) Results Result Diagram: 03/30/19 0530 03/30/19 0530 Results 24hrs Laboratory Tests Test 03/29/19 19:22 03/29/19 19:28 03/29/19 19:32 03/29/19 20:45 White Blood 10.1 Count Red Blood Count 4.06 L Hemoglobin 11.2 L Hematocrit 37.0 Mean Corpuscular 91.1 Volume Mean Corpuscular 27.6 L Hemoglobin Mean Corpuscular 30.3 L Hemoglobin Divya nt Red Cell 17.5 H Distribution Width Platelet Count 215 Mean Platelet 11.1 H Volume Immature 4.100 H Granulocytes % Neutrophils % 52.3 Lymphocytes % 35.0 Monocytes % 6.1 Eosinophils % 1.6 Basophils % 0.9 Nucleated Red 0.0 Blood Cells % Immature 0.410 H Granulocytes # Neutrophils # 5.3 Lymphocytes # 3.5 H Monocytes # 0.6 Eosinophils # 0.2 Basophils # 0.1 Nucleated Red 0.0 Blood Cells # Bedside Glucose 389 H 359 H Prothrombin Time 20.6 H Prothrombin Time 1.6 Ratio INR 1.76 International Normalized Ratio Activated 31.5 Partial Thrombop last Time Sodium Level 132 L Potassium Level 7.1 *H Chloride Level 102 Carbon Dioxide 15 L Level Anion Gap 15 H Blood Urea 53 H Nitrogen Creatinine 2.48 H Est Glomerular Filtrat Rate mL/min Glucose Level 402 *H Calcium Level 9.1 Total Bilirubin 0.6 Direct Bilirubin 0.00 Indirect 0.6 Bilirubin Aspartate Amino 43 Transf (AST/SGOT ) Alanine 29 Aminotransferase (ALT/SGPT) Alkaline 107 Phosphatase Ammonia < 9 L Creatine Kinase 28 Troponin I 0.021 Total Protein 7.1 Albumin 3.8 Globulin 3.30 H Albumin/Globulin 1.15 Ratio Free Thyroxine 3.60 Index Thyroxine (T4) 8.0 Triiodothyronine 45.0 H (T3) Uptake Digoxin Level 3.0 *H Salicylates < 1.0 L Level Acetaminophen < 10.0 L Level Ethyl Alcohol < 10.0 H Level POC Venous 4.2 *H Lactate Test 03/29/19 21:22 03/29/19 21:33 03/29/19 23:34 03/30/19 01:04 Urine Color YELLOW Urine Clarity SLIGHTLY CLOUDY A Urine pH 5.0 Urine Specific 1.016 [place] Urine Ketones NEGATIVE Urine Nitrite NEGATIVE Urine Bilirubin NEGATIVE Urine NEGATIVE Urobilinogen Urine Leukocyte NEGATIVE Esterase Urine 2 Microscopic RBC Urine 4 Microscopic WBC Urine Squamous FEW Epithelial Cells Urine Bacteria FEW A Urine Mucus FEW A Urine Hemoglobin NEGATIVE Urine Glucose NEGATIVE Urine Total 2+ H Protein Urine Opiates NEGATIVE Screen Urine NEGATIVE Barbiturates Urine NEGATIVE Amphetamines Screen Urine NEGATIVE Benzodiazepines Screen Urine Cocaine NEGATIVE Screen Urine NEGATIVE Cannabinoids Lactic Acid 7.9 *H 7.1 *H Level Sodium Level 136 Potassium Level 6.6 *H Chloride Level 109 Carbon Dioxide 17 L Level Anion Gap 10 # Blood Urea 53 H Nitrogen Creatinine 2.41 H Est Glomerular Filtrat Rate mL/min Glucose Level 263 #H Calcium Level 7.7 L Blood Gas Blood arterial Specimen Source Arterial Blood 03/30/2019 3:10: Date Drawn 05 AM Arterial Blood 7.300 L pH (Temp corrected) Arterial Blood 26.3 L pCO2 (Temp correct) Arterial Blood 132.6 H pO2 (Temp corrected) Arterial Blood 12.7 L HCO3 Arterial Blood -12.1 L Base Excess Arterial Blood 98.1 Oxygen Saturatio n Rush Test ACCEPTAB Arterial Blood Right Radial Gas Puncture Site Arterial 0.3 Blood Carboxyhem oglobin Arterial Blood 0.2 Methemoglobin Oxyhemoglobin 97.6 Percent Blood Gas 37.0 Temperature Blood Gas ROOM AIR Modality FiO2 21.0 Blood Gas Ivan GRAY MD Critical Value Read Back Blood Gas MR Notified Whom Blood Gas 03/30/2019 3:23: Notified Time 10 AM Test 03/30/19 01:41 03/30/19 03:14 03/30/19 04:01 03/30/19 05:30 Bedside Glucose 198 143 164 White Blood 19.4 #H Count Red Blood Count 4.09 L Hemoglobin 11.5 L Hematocrit 37.2 Mean Corpuscular 91.0 Volume Mean Corpuscular 28.1 L Hemoglobin Mean Corpuscular 30.9 L Hemoglobin Divya nt Red Cell 17.6 H Distribution Width Platelet Count 221 Mean Platelet 10.9 H Volume Immature 3.700 H Granulocytes % Neutrophils % 76.2 Lymphocytes % 8.9 L Monocytes % 10.7 Eosinophils % 0.0 Basophils % 0.5 Nucleated Red 0.0 Blood Cells % Immature 0.710 H Granulocytes # Neutrophils # 14.8 H Lymphocytes # 1.7 Monocytes # 2.1 H Eosinophils # 0.0 Basophils # 0.1 Nucleated Red 0.0 Blood Cells # Urine Color YELLOW Urine Clarity CLOUDY A Urine pH 5.0 Urine Specific 1.013 [place] Urine Ketones NEGATIVE Urine Nitrite NEGATIVE Urine Bilirubin NEGATIVE Urine NEGATIVE Urobilinogen Urine Leukocyte NEGATIVE Esterase Urine 2 Microscopic RBC Urine 13 H Microscopic WBC Urine Squamous FEW Epithelial Cells Urine Bacteria FEW A Urine Mucus FEW A Urine Hemoglobin NEGATIVE Urine Random 78.00 Creatinine Urine Random 29 L Sodium Urine 0.75 Protein/Creatini ne Ratio Urine Glucose 1+ H Urine Total 1+ H Protein Sodium Level 143 Potassium Level 5.1 Chloride Level 114 H Carbon Dioxide 21 Level Anion Gap 8 Blood Urea 53 H Nitrogen Creatinine 2.37 H Est Glomerular Filtrat Rate mL/min Glucose Level 94 # Calcium Level 8.5 Magnesium Level 2.1 Total Bilirubin 0.5 Direct Bilirubin 0.00 Indirect 0.5 Bilirubin Aspartate Amino 1206 H Transf (AST/SGOT ) Alanine 1048 H Aminotransferase (ALT/SGPT) Alkaline 107 Phosphatase Total Protein 6.6 Albumin 3.4 Globulin 3.20 Albumin/Globulin 1.06 Ratio Triglycerides 70 Level Cholesterol 97 L Level LDL Cholesterol, 47 Calculated HDL Cholesterol 36 Cholesterol/HDL 2.6 Ratio Digoxin Level 3.4 *H Medications Medication Current Medications Norepinephrine 250 ml @ 1.875 mls/ hr TITRATE IV Last administered on 03/29/19at 20:48; Admin Dose 1.875 MLS/HR; Start 03/29/19 at 20:30 Sodium Chloride 1,000 ml @ 80 mls/hr [id number] IV Last administered on 03/30/19at 00:38; Admin Dose 80 MLS/HR; Start 03/29/19 at 22:59 Ondansetron HCl (Zofran Inj) 4 mg Q6H PRN IV NAUSEA AND/OR VOMITING; Start 03/29/19 at 23:00 Albuterol/ Ipratropium (Duoneb) 3 ml Q4H RESP THERAPY NEB Last administered on 03/30/19at 06:01; Admin Dose 3 ML; Start 03/30/19 at 01:00 Acetaminophen (Tylenol Liquid) 650 mg Q6H PRN PO PAIN LEVEL 1-3 OR FEVER; Start 03/29/19 at 23:00 Pantoprazole (Protonix Iv) 40 mg DAILY@06 IV Last administered on 03/30/19at 06:00; Admin Dose 40 MG; Start 03/30/19 at 06:00 Vancomycin HCl (Vanco Iv Per Pharmacy) VANCOMYCIN PER PHARMACY PER PROTOCOL XX ; Start 03/30/19 at 00:00 Miscellaneous Information (* Miscellaneous Pharmacy Order) Treatment of Hy poglycemia: 1.BG 51... Per protocol XX ; Start 03/30/19 at 00:00 Dextrose (D50w Syringe) 25 ml Q15M PRN IV .DECREASED GLUCOSE Last administered on 03/30/19at 03:29; Admin Dose 25 ML; Start 03/30/19 at 00:00 Dextrose (D50w Syringe) 50 ml Q15M PRN IV .DECREASED GLUCOSE; Start 03/30/19 at 00:00 Phenylephrine HCl 250 ml @ 75 mls/hr TITRATE IV ; Start 03/30/19 at 01:00 Dextrose (D50w Syringe) ONCE PRN IV DECREASED GLUCOSE; Start 03/30/19 at 03:00 Diagnostic Test (Pha) (Accu-Chek) 1 ea Q4H XX ; Start 03/30/19 at 08:00 MARS ROSS MD March 30, 2019 07:59
[2019-03-30] MEDS: MEROPENEM 500MG/50 ML (PMX) 50 ML IVPB SCH ×2 (08:47→20:45)
--- NOTE | 2019-03-30 10:37 | PN ---
Date/Time of Note Date/Time of Note DATE: 03/30/19 TIME: 10:37 Assessment/Plan VTE Prophylaxis Risk score (from Ns)>0 risk: 8 SCD applied (from Ns): Yes Pharmacological prophylaxis: heparin Lines/Catheters IV Catheter Type (from Nrsg): Central Line Central line still needed: Yes Urinary Cath still in place: Yes Reason Cath still needed: terminal illness/intractable pain Assessment/Plan Assessment/Plan 1. Septic shock, unknown source - Will repeat LA given initially 7. Continue levophed and wean as tolerated to maintain MAP >65 - Continue broad spectrum antibiotics - Imaging studies negative for acute abnormalities - IVF 2. ?Digoxin toxicity - given dose of digifab - Cardiology consultation appreciated 3. Hyperkalemia - improved 4. Acute metabolic encephalopathy - monitor for improvement in mentation 5. YAN on CKD - Nephrology consulted for recommendations - US shows normal kidney size - avoid nephrotoxic agents 6. h/o afib - holding digoxin - paced 7. CAD - continue home medications - Cardiology on board 8. Transaminitis - possibly dehydration related - will continue trending - US liver normal 9. Disposition - Continue monitoring in ICU given ?digoxin toxicity. If cleared by Cardiology and remains stable, will transfer to [facility] tomorrow Result Diagram: 03/30/19 0530 03/30/19 0530 Results 24hrs Laboratory Tests Test 03/29/19 19:22 03/29/19 19:28 03/29/19 19:32 03/29/19 20:45 White Blood 10.1 Count Red Blood Count 4.06 L Hemoglobin 11.2 L Hematocrit 37.0 Mean Corpuscular 91.1 Volume Mean Corpuscular 27.6 L Hemoglobin Mean Corpuscular 30.3 L Hemoglobin Divya nt Red Cell 17.5 H Distribution Width Platelet Count 215 Mean Platelet 11.1 H Volume Immature 4.100 H Granulocytes % Neutrophils % 52.3 Lymphocytes % 35.0 Monocytes % 6.1 Eosinophils % 1.6 Basophils % 0.9 Nucleated Red 0.0 Blood Cells % Immature 0.410 H Granulocytes # Neutrophils # 5.3 Lymphocytes # 3.5 H Monocytes # 0.6 Eosinophils # 0.2 Basophils # 0.1 Nucleated Red 0.0 Blood Cells # Bedside Glucose 389 H 359 H Prothrombin Time 20.6 H Prothrombin Time 1.6 Ratio INR 1.76 International Normalized Ratio Activated 31.5 Partial Thrombop last Time Sodium Level 132 L Potassium Level 7.1 *H Chloride Level 102 Carbon Dioxide 15 L Level Anion Gap 15 H Blood Urea 53 H Nitrogen Creatinine 2.48 H Est Glomerular Filtrat Rate mL/min Glucose Level 402 *H Calcium Level 9.1 Total Bilirubin 0.6 Direct Bilirubin 0.00 Indirect 0.6 Bilirubin Aspartate Amino 43 Transf (AST/SGOT ) Alanine 29 Aminotransferase (ALT/SGPT) Alkaline 107 Phosphatase Ammonia < 9 L Creatine Kinase 28 Troponin I 0.021 Total Protein 7.1 Albumin 3.8 Globulin 3.30 H Albumin/Globulin 1.15 Ratio Free Thyroxine 3.60 Index Thyroxine (T4) 8.0 Triiodothyronine 45.0 H (T3) Uptake Digoxin Level 3.0 *H Salicylates < 1.0 L Level Acetaminophen < 10.0 L Level Ethyl Alcohol < 10.0 H Level POC Venous 4.2 *H Lactate Test 03/29/19 21:22 03/29/19 21:33 03/29/19 23:34 03/30/19 01:04 Urine Color YELLOW Urine Clarity SLIGHTLY CLOUDY A Urine pH 5.0 Urine Specific 1.016 [place] Urine Ketones NEGATIVE Urine Nitrite NEGATIVE Urine Bilirubin NEGATIVE Urine NEGATIVE Urobilinogen Urine Leukocyte NEGATIVE Esterase Urine 2 Microscopic RBC Urine 4 Microscopic WBC Urine Squamous FEW Epithelial Cells Urine Bacteria FEW A Urine Mucus FEW A Urine Hemoglobin NEGATIVE Urine Glucose NEGATIVE Urine Total 2+ H Protein Urine Opiates NEGATIVE Screen Urine NEGATIVE Barbiturates Urine NEGATIVE Amphetamines Screen Urine NEGATIVE Benzodiazepines Screen Urine Cocaine NEGATIVE Screen Urine NEGATIVE Cannabinoids Lactic Acid 7.9 *H 7.1 *H Level Sodium Level 136 Potassium Level 6.6 *H Chloride Level 109 Carbon Dioxide 17 L Level Anion Gap 10 # Blood Urea 53 H Nitrogen Creatinine 2.41 H Est Glomerular Filtrat Rate mL/min Glucose Level 263 #H Calcium Level 7.7 L Blood Gas Blood arterial Specimen Source Arterial Blood 03/30/2019 3:10: Date Drawn 05 AM Arterial Blood 7.300 L pH (Temp corrected) Arterial Blood 26.3 L pCO2 (Temp correct) Arterial Blood 132.6 H pO2 (Temp corrected) Arterial Blood 12.7 L HCO3 Arterial Blood -12.1 L Base Excess Arterial Blood 98.1 Oxygen Saturatio n Rush Test ACCEPTAB Arterial Blood Right Radial Gas Puncture Site Arterial 0.3 Blood Carboxyhem oglobin Arterial Blood 0.2 Methemoglobin Oxyhemoglobin 97.6 Percent Blood Gas 37.0 Temperature Blood Gas ROOM AIR Modality FiO2 21.0 Blood Gas Ivan GRAY MD Critical Value Read Back Blood Gas MR Notified Whom Blood Gas 03/30/2019 3:23: Notified Time 10 AM Test 03/30/19 01:41 03/30/19 03:14 03/30/19 04:01 03/30/19 05:30 Bedside Glucose 198 143 164 White Blood 19.4 #H Count Red Blood Count 4.09 L Hemoglobin 11.5 L Hematocrit 37.2 Mean Corpuscular 91.0 Volume Mean Corpuscular 28.1 L Hemoglobin Mean Corpuscular 30.9 L Hemoglobin Divya nt Red Cell 17.6 H Distribution Width Platelet Count 221 Mean Platelet 10.9 H Volume Immature 3.700 H Granulocytes % Neutrophils % 76.2 Lymphocytes % 8.9 L Monocytes % 10.7 Eosinophils % 0.0 Basophils % 0.5 Nucleated Red 0.0 Blood Cells % Immature 0.710 H Granulocytes # Neutrophils # 14.8 H Lymphocytes # 1.7 Monocytes # 2.1 H Eosinophils # 0.0 Basophils # 0.1 Nucleated Red 0.0 Blood Cells # Urine Color YELLOW Urine Clarity CLOUDY A Urine pH 5.0 Urine Specific 1.013 [place] Urine Ketones NEGATIVE Urine Nitrite NEGATIVE Urine Bilirubin NEGATIVE Urine NEGATIVE Urobilinogen Urine Leukocyte NEGATIVE Esterase Urine 2 Microscopic RBC Urine 13 H Microscopic WBC Urine Squamous FEW Epithelial Cells Urine Bacteria FEW A Urine Mucus FEW A Urine Hemoglobin NEGATIVE Urine Random 78.00 Creatinine Urine Random 29 L Sodium Urine 0.75 Protein/Creatini ne Ratio Urine Glucose 1+ H Urine Total 1+ H Protein Sodium Level 143 Potassium Level 5.1 Chloride Level 114 H Carbon Dioxide 21 Level Anion Gap 8 Blood Urea 53 H Nitrogen Creatinine 2.37 H Est Glomerular Filtrat Rate mL/min Glucose Level 94 # Hemoglobin A1c 5.7 Calcium Level 8.5 Magnesium Level 2.1 Total Bilirubin 0.5 Direct Bilirubin 0.00 Indirect 0.5 Bilirubin Aspartate Amino 1206 H Transf (AST/SGOT ) Alanine 1048 H Aminotransferase (ALT/SGPT) Alkaline 107 Phosphatase Total Protein 6.6 Albumin 3.4 Globulin 3.20 Albumin/Globulin 1.06 Ratio Triglycerides 70 Level Cholesterol 97 L Level LDL Cholesterol, 47 Calculated HDL Cholesterol 36 Cholesterol/HDL 2.6 Ratio Procalcitonin 1.17 H Thyroid 6.630 H Stimulating Hormone (TSH) Digoxin Level 3.4 *H Test 03/30/19 08:28 Bedside Glucose 102 Subjective 24 Hr Interval Summary Free Text/Dictation Patient mumbling and hard to understand but complaining of SCD bothering her legs. Exam/Review of Systems Exam Vitals Vital Signs Date Temp Pulse Resp B/P (MAP) Pulse Ox O2 O2 Flow FiO2 Time Delivery Rate 03/30/19 70 08:00 03/30/19 20 100 21 07:54 03/30/19 111/61 06:45 (78) 03/30/19 97.4 04:00 03/30/19 Nasal 2.0 02:30 Cannula Intake and Output 03/29/19 03/29/19 03/30/19 1515:00 23:00 07:00 IntakeIntake Total 2300 ml 396.95 ml OutputOutput Total 120 ml BalanceBalance 2300 ml 276.95 ml Exam General: No acute distress Neck: Supple Lungs: Clear to auscultation bilaterally no crackles rales or wheezing Heart: Paced rhythm, systolic murmur Abdomen: Soft , nontender, nondistended , bowel sounds are present. No guarding no rebound tenderness Extremities: Normal to inspection, no edema no cyanosis, muscle wasting Skin: no lesions appreciated Results Results 24hrs Laboratory Tests Test 03/29/19 19:22 03/29/19 19:28 03/29/19 19:32 03/29/19 20:45 White Blood 10.1 Count Red Blood Count 4.06 L Hemoglobin 11.2 L Hematocrit 37.0 Mean Corpuscular 91.1 Volume Mean Corpuscular 27.6 L Hemoglobin Mean Corpuscular 30.3 L Hemoglobin Divya nt Red Cell 17.5 H Distribution Width Platelet Count 215 Mean Platelet 11.1 H Volume Immature 4.100 H Granulocytes % Neutrophils % 52.3 Lymphocytes % 35.0 Monocytes % 6.1 Eosinophils % 1.6 Basophils % 0.9 Nucleated Red 0.0 Blood Cells % Immature 0.410 H Granulocytes # Neutrophils # 5.3 Lymphocytes # 3.5 H Monocytes # 0.6 Eosinophils # 0.2 Basophils # 0.1 Nucleated Red 0.0 Blood Cells # Bedside Glucose 389 H 359 H Prothrombin Time 20.6 H Prothrombin Time 1.6 Ratio INR 1.76 International Normalized Ratio Activated 31.5 Partial Thrombop last Time Sodium Level 132 L Potassium Level 7.1 *H Chloride Level 102 Carbon Dioxide 15 L Level Anion Gap 15 H Blood Urea 53 H Nitrogen Creatinine 2.48 H Est Glomerular Filtrat Rate mL/min Glucose Level 402 *H Calcium Level 9.1 Total Bilirubin 0.6 Direct Bilirubin 0.00 Indirect 0.6 Bilirubin Aspartate Amino 43 Transf (AST/SGOT ) Alanine 29 Aminotransferase (ALT/SGPT) Alkaline 107 Phosphatase Ammonia < 9 L Creatine Kinase 28 Troponin I 0.021 Total Protein 7.1 Albumin 3.8 Globulin 3.30 H Albumin/Globulin 1.15 Ratio Free Thyroxine 3.60 Index Thyroxine (T4) 8.0 Triiodothyronine 45.0 H (T3) Uptake Digoxin Level 3.0 *H Salicylates < 1.0 L Level Acetaminophen < 10.0 L Level Ethyl Alcohol < 10.0 H Level POC Venous 4.2 *H Lactate Test 03/29/19 21:22 03/29/19 21:33 03/29/19 23:34 03/30/19 01:04 Urine Color YELLOW Urine Clarity SLIGHTLY CLOUDY A Urine pH 5.0 Urine Specific 1.016 [place] Urine Ketones NEGATIVE Urine Nitrite NEGATIVE Urine Bilirubin NEGATIVE Urine NEGATIVE Urobilinogen Urine Leukocyte NEGATIVE Esterase Urine 2 Microscopic RBC Urine 4 Microscopic WBC Urine Squamous FEW Epithelial Cells Urine Bacteria FEW A Urine Mucus FEW A Urine Hemoglobin NEGATIVE Urine Glucose NEGATIVE Urine Total 2+ H Protein Urine Opiates NEGATIVE Screen Urine NEGATIVE Barbiturates Urine NEGATIVE Amphetamines Screen Urine NEGATIVE Benzodiazepines Screen Urine Cocaine NEGATIVE Screen Urine NEGATIVE Cannabinoids Lactic Acid 7.9 *H 7.1 *H Level Sodium Level 136 Potassium Level 6.6 *H Chloride Level 109 Carbon Dioxide 17 L Level Anion Gap 10 # Blood Urea 53 H Nitrogen Creatinine 2.41 H Est Glomerular Filtrat Rate mL/min Glucose Level 263 #H Calcium Level 7.7 L Blood Gas Blood arterial Specimen Source Arterial Blood 03/30/2019 3:10: Date Drawn 05 AM Arterial Blood 7.300 L pH (Temp corrected) Arterial Blood 26.3 L pCO2 (Temp correct) Arterial Blood 132.6 H pO2 (Temp corrected) Arterial Blood 12.7 L HCO3 Arterial Blood -12.1 L Base Excess Arterial Blood 98.1 Oxygen Saturatio n Rush Test ACCEPTAB Arterial Blood Right Radial Gas Puncture Site Arterial 0.3 Blood Carboxyhem oglobin Arterial Blood 0.2 Methemoglobin Oxyhemoglobin 97.6 Percent Blood Gas 37.0 Temperature Blood Gas ROOM AIR Modality FiO2 21.0 Blood Gas Ivan GRAY MD Critical Value Read Back Blood Gas MR Notified Whom Blood Gas 03/30/2019 3:23: Notified Time 10 AM Test 03/30/19 01:41 03/30/19 03:14 03/30/19 04:01 03/30/19 05:30 Bedside Glucose 198 143 164 White Blood 19.4 #H Count Red Blood Count 4.09 L Hemoglobin 11.5 L Hematocrit 37.2 Mean Corpuscular 91.0 Volume Mean Corpuscular 28.1 L Hemoglobin Mean Corpuscular 30.9 L Hemoglobin Divya nt Red Cell 17.6 H Distribution Width Platelet Count 221 Mean Platelet 10.9 H Volume Immature 3.700 H Granulocytes % Neutrophils % 76.2 Lymphocytes % 8.9 L Monocytes % 10.7 Eosinophils % 0.0 Basophils % 0.5 Nucleated Red 0.0 Blood Cells % Immature 0.710 H Granulocytes # Neutrophils # 14.8 H Lymphocytes # 1.7 Monocytes # 2.1 H Eosinophils # 0.0 Basophils # 0.1 Nucleated Red 0.0 Blood Cells # Urine Color YELLOW Urine Clarity CLOUDY A Urine pH 5.0 Urine Specific 1.013 [place] Urine Ketones NEGATIVE Urine Nitrite NEGATIVE Urine Bilirubin NEGATIVE Urine NEGATIVE Urobilinogen Urine Leukocyte NEGATIVE Esterase Urine 2 Microscopic RBC Urine 13 H Microscopic WBC Urine Squamous FEW Epithelial Cells Urine Bacteria FEW A Urine Mucus FEW A Urine Hemoglobin NEGATIVE Urine Random 78.00 Creatinine Urine Random 29 L Sodium Urine 0.75 Protein/Creatini ne Ratio Urine Glucose 1+ H Urine Total 1+ H Protein Sodium Level 143 Potassium Level 5.1 Chloride Level 114 H Carbon Dioxide 21 Level Anion Gap 8 Blood Urea 53 H Nitrogen Creatinine 2.37 H Est Glomerular Filtrat Rate mL/min Glucose Level 94 # Hemoglobin A1c 5.7 Calcium Level 8.5 Magnesium Level 2.1 Total Bilirubin 0.5 Direct Bilirubin 0.00 Indirect 0.5 Bilirubin Aspartate Amino 1206 H Transf (AST/SGOT ) Alanine 1048 H Aminotransferase (ALT/SGPT) Alkaline 107 Phosphatase Total Protein 6.6 Albumin 3.4 Globulin 3.20 Albumin/Globulin 1.06 Ratio Triglycerides 70 Level Cholesterol 97 L Level LDL Cholesterol, 47 Calculated HDL Cholesterol 36 Cholesterol/HDL 2.6 Ratio Procalcitonin 1.17 H Thyroid 6.630 H Stimulating Hormone (TSH) Digoxin Level 3.4 *H Test 03/30/19 08:28 Bedside Glucose 102 Medications Medication Current Medications Norepinephrine 250 ml @ 1.875 mls/ hr TITRATE IV Last administered on 03/29/19at 20:48; Admin Dose 1.875 MLS/HR; Start 03/29/19 at 20:30 Sodium Chloride 1,000 ml @ 80 mls/hr [id number] IV Last administered on 03/30/19at 00:38; Admin Dose 80 MLS/HR; Start 03/29/19 at 22:59 Ondansetron HCl (Zofran Inj) 4 mg Q6H PRN IV NAUSEA AND/OR VOMITING; Start 03/29/19 at 23:00 Albuterol/ Ipratropium (Duoneb) 3 ml Q4H RESP THERAPY NEB Last administered on 03/30/19at 07:54; Admin Dose 3 ML; Start 03/30/19 at 01:00 Acetaminophen (Tylenol Liquid) 650 mg Q6H PRN PO PAIN LEVEL 1-3 OR FEVER; Start 03/29/19 at 23:00 Pantoprazole (Protonix Iv) 40 mg DAILY@06 IV Last administered on 03/30/19at 06:00; Admin Dose 40 MG; Start 03/30/19 at 06:00 Vancomycin HCl (Vanco Iv Per Pharmacy) VANCOMYCIN PER PHARMACY PER PROTOCOL XX ; Start 03/30/19 at 00:00 Miscellaneous Information (* Miscellaneous Pharmacy Order) Treatment of Hypoglycemia: 1.BG 51... Per protocol XX ; Start 03/30/19 at 00:00 Dextrose (D50w Syringe) 25 ml Q15M PRN IV .DECREASED GLUCOSE Last administered on 03/30/19at 03:29; Admin Dose 25 ML; Start 03/30/19 at 00:00 Dextrose (D50w Syringe) 50 ml Q15M PRN IV .DECREASED GLUCOSE; Start 03/30/19 at 00:00 Phenylephrine HCl 250 ml @ 75 mls/hr TITRATE IV ; Start 03/30/19 at 01:00 Dextrose (D50w Syringe) ONCE PRN IV DECREASED GLUCOSE; Start 03/30/19 at 03:00 Diagnostic Test (Pha) (Accu-Chek) 1 ea Q4H XX ; Start 03/30/19 at 08:00 Meropenem/Sodium Chloride 50 ml @ 100 mls/hr Q12 IVPB Last administered on 03/30/19at 08:47; Admin Dose 100 MLS/HR; Start 03/30/19 at 09:00 MEHUL MILLER MD March 30, 2019 10:37
--- NOTE | 2019-03-30 13:05 | CONS ---
Assessment/Plan Assessment/Plan Hospital Course (Demo Recall) SIRS Hypotension, improved Hyperkalemia with acute kidney injury Elevated digoxin level Encephalopathy History atrial fibrillation History pacemaker History of CVA -Patient with altered mental status and laboratory studies with elevated lactic levels, digoxin level, hyperkalemia, acute kidney injury as well as hypotension. -Patient remains V paced, continue to hold digoxin or any AV robles blocking agents at the current time. -Check echocardiogram Consultation Date/Type/Reason Admit Date/Time Type of Consult Cardiology Reason for Consultation Hypotension Date/Time of Note DATE: 03/30/19 TIME: 12:59 Hx of Present Illness This is a 78-year-old female who was brought to emergency room secondary to altered mental status. Discussion with patient's daughter and patient at bedside, they are unclear of what happened. Patient's daughter states that her brother is usually at home with the patient. Seems patient was altered and was nauseous and vomiting. As per the ER records, patient was hypotensive and altered in the emergency room. Patient was found to be hyperkalemic, acute kidney injury, elevated lactate levels and hypotensive. Patient was placed on IV pressors in the ICU. At the current time, patient denies any shortness of breath. Denies chest pain. 12 point review of systems was performed with all pertinent positives and negatives mentioned above and all else is negative Past Medical History Atrial fibrillation CVA Medical History: hypertension Home Meds Reported Medications Cefpodoxime Proxetil* (Cefpodoxime Proxetil*) 200 Mg Tablet, 200 MG PO Q12H 03/30/19 Hydrochlorothiazide (Hydrochlorothiazide) 25 Mg Tablet, 25 MG PO QAM for 100 Days, #50 03/30/19 Potassium Chloride (K-Tab) 10 Meq Tablet.sa, 30 MEQ PO BID for 100 Days, #600 03/30/19 Verapamil Hcl* (Verapamil ER*) 240 Mg Tablet.er, 240 MG PO QAM for 100 Days, #100 03/30/19 Montelukast Sodium* (Montelukast Sodium*) 10 Mg Tablet, 10 MG PO DAILY for 90 Days, #90 03/30/19 Losartan Potassium* (Losartan Potassium*) 50 Mg Tablet, 50 MG PO BID for 23 Days, #46 03/30/19 Famotidine* (Famotidine*) 20 Mg Tablet, 20 MG PO BID for 23 Days, #46 03/30/19 Digoxin* (Digitek*) 125 Mcg Tablet, 125 MCG PO QAM for 7 Days 03/30/19 Metoprolol Tartrate* (Lopressor*) 50 Mg Tab, 50 MG PO BID for 23 Days, #46 03/30/19 Atorvastatin Calcium (Atorvastatin Calcium) 20 Mg Tablet, 20 MG PO DAILY for 23 Days, #23 03/30/19 Pramipexole* (Pramipexole*) 0.125 Mg Tablet, 1 TAB PO BID TAKE 1 TABLET MY MOUTH ABOUT 45MIN AFTER DINNER and TAKE 1 TAB BEFORE SLEEP 03/30/19 Medications Current Medications Norepinephrine 250 ml @ 1.875 mls/ hr TITRATE IV Last administered on 03/29/19at 20:48; Admin Dose 1.875 MLS/HR; Start 03/29/19 at 20:30 Sodium Chloride 1,000 ml @ 80 mls/hr [id number] IV Last administered on 03/30/19at 12:57; Admin Dose 80 MLS/HR; Start 03/29/19 at 22:59 Ondansetron HCl (Zofran Inj) 4 mg Q6H PRN IV NAUSEA AND/OR VOMITING; Start 03/29/19 at 23:00 Albuterol/ Ipratropium (Duoneb) 3 ml Q4H RESP THERAPY NEB Last administered on 03/30/19at 07:54; Admin Dose 3 ML; Start 03/30/19 at 01:00 Acetaminophen (Tylenol Liquid) 650 mg Q6H PRN PO PAIN LEVEL 1-3 OR FEVER; Start 03/29/19 at 23:00 Vancomycin HCl (Vanco Iv Per Pharmacy) VANCOMYCIN PER PHARMACY PER PROTOCOL XX ; Start 03/30/19 at 00:00 Miscellaneous Information (* Miscellaneous Pharmacy Order) Treatment of Hypogl ycemia: 1.BG 51... Per protocol XX ; Start 03/30/19 at 00:00 Dextrose (D50w Syringe) 25 ml Q15M PRN IV .DECREASED GLUCOSE Last administered on 03/30/19at 03:29; Admin Dose 25 ML; Start 03/30/19 at 00:00 Dextrose (D50w Syringe) 50 ml Q15M PRN IV .DECREASED GLUCOSE; Start 03/30/19 at 00:00 Phenylephrine HCl 250 ml @ 75 mls/hr TITRATE IV ; Start 03/30/19 at 01:00 Dextrose (D50w Syringe) ONCE PRN IV DECREASED GLUCOSE; Start 03/30/19 at 03:00 Diagnostic Test (Pha) (Accu-Chek) 1 ea Q4H XX ; Start 03/30/19 at 08:00 Meropenem/Sodium Chloride 50 ml @ 100 mls/hr Q12 IVPB Last administered on 03/30/19at 08:47; Admin Dose 100 MLS/HR; Start 03/30/19 at 09:00 Heparin Sodium (Porcine) (Heparin (5000 Units/1ml)) 5,000 unit BID SC ; Start 03/30/19 at 21:00 Famotidine (Pepcid Iv) 20 mg DAILY IV ; Start 03/31/19 at 09:00 Allergies: Coded Allergies: Penicillins (Unverified Allergy, Unknown, 03/30/19) Past Surgical History Past Surgical Hx: other (Including management pacemaker) Social History Smoking Status: Unknown if ever smoked Drug Use: none Exam/Review of Systems Vital Signs Vitals Vital Signs Date Temp Pulse Resp B/P (MAP) Pulse Ox O2 O2 Flow FiO2 Time Delivery Rate 03/30/19 79 30 100 10:30 03/30/19 124/84 10:15 (97) 03/30/19 97.2 Room Air 08:00 03/30/19 21 07:54 03/30/19 2.0 02:30 Intake and Output 03/29/19 03/29/19 03/30/19 1515:00 23:00 07:00 IntakeIntake Total 2300 ml 491.95 ml OutputOutput Total 120 ml BalanceBalance 2300 ml 371.95 ml Exam Constitutional: alert (Follows commands, difficulty with speech but as per family this is baseline since CVA, able to answer simple questions) Respiratory: other (Coarse breath sounds bilaterally, no wheezing) Cardiovascular: regular rate and rhythm (S1-S2 heard) Gastrointestinal: soft, non-tender, bowel sounds Extremities: other (No significant edema) Labs Result Diagram: 03/30/19 0530 03/30/19 0530 Results 24hrs Laboratory Tests Test 03/29/19 19:22 03/29/19 19:28 03/29/19 19:32 03/29/19 20:45 White Blood 10.1 Count Red Blood Count 4.06 L Hemoglobin 11.2 L Hematocrit 37.0 Mean Corpuscular 91.1 Volume Mean Corpuscular 27.6 L Hemoglobin Mean Corpuscular 30.3 L Hemoglobin Divya nt Red Cell 17.5 H Distribution Width Platelet Count 215 Mean Platelet 11.1 H Volume Immature 4.100 H Granulocytes % Neutrophils % 52.3 Lymphocytes % 35.0 Monocytes % 6.1 Eosinophils % 1.6 Basophils % 0.9 Nucleated Red 0.0 Blood Cells % Immature 0.410 H Granulocytes # Neutrophils # 5.3 Lymphocytes # 3.5 H Monocytes # 0.6 Eosinophils # 0.2 Basophils # 0.1 Nucleated Red 0.0 Blood Cells # Bedside Glucose 389 H 359 H Prothrombin Time 20.6 H Prothrombin Time 1.6 Ratio INR 1.76 International Normalized Ratio Activated 31.5 Partial Thrombop last Time Sodium Level 132 L Potassium Level 7.1 *H Chloride Level 102 Carbon Dioxide 15 L Level Anion Gap 15 H Blood Urea 53 H Nitrogen Creatinine 2.48 H Est Glomerular Filtrat Rate mL/min Glucose Level 402 *H Calcium Level 9.1 Total Bilirubin 0.6 Direct Bilirubin 0.00 Indirect 0.6 Bilirubin Aspartate Amino 43 Transf (AST/SGOT ) Alanine 29 Aminotransferase (ALT/SGPT) Alkaline 107 Phosphatase Ammonia < 9 L Creatine Kinase 28 Troponin I 0.021 Total Protein 7.1 Albumin 3.8 Globulin 3.30 H Albumin/Globulin 1.15 Ratio Free Thyroxine 3.60 Index Thyroxine (T4) 8.0 Triiodothyronine 45.0 H (T3) Uptake Digoxin Level 3.0 *H Salicylates < 1.0 L Level Acetaminophen < 10.0 L Level Ethyl Alcohol < 10.0 H Level POC Venous 4.2 *H Lactate Test 03/29/19 21:22 03/29/19 21:33 03/29/19 23:34 03/30/19 01:04 Urine Color YELLOW Urine Clarity SLIGHTLY CLOUDY A Urine pH 5.0 Urine Specific 1.016 [place] Urine Ketones NEGATIVE Urine Nitrite NEGATIVE Urine Bilirubin NEGATIVE Urine NEGATIVE Urobilinogen Urine Leukocyte NEGATIVE Esterase Urine 2 Microscopic RBC Urine 4 Microscopic WBC Urine Squamous FEW Epithelial Cells Urine Bacteria FEW A Urine Mucus FEW A Urine Hemoglobin NEGATIVE Urine Glucose NEGATIVE Urine Total 2+ H Protein Urine Opiates NEGATIVE Screen Urine NEGATIVE Barbiturates Urine NEGATIVE Amphetamines Screen Urine NEGATIVE Benzodiazepines Screen Urine Cocaine NEGATIVE Screen Urine NEGATIVE Cannabinoids Lactic Acid 7.9 *H 7.1 *H Level Sodium Level 136 Potassium Level 6.6 *H Chloride Level 109 Carbon Dioxide 17 L Level Anion Gap 10 # Blood Urea 53 H Nitrogen Creatinine 2.41 H Est Glomerular Filtrat Rate mL/min Glucose Level 263 #H Calcium Level 7.7 L Blood Gas Blood arterial Specimen Source Arterial Blood 03/30/2019 3:10: Date Drawn 05 AM Arterial Blood 7.300 L pH (Temp corrected) Arterial Blood 26.3 L pCO2 (Temp correct) Arterial Blood 132.6 H pO2 (Temp corrected) Arterial Blood 12.7 L HCO3 Arterial Blood -12.1 L Base Excess Arterial Blood 98.1 Oxygen Saturatio n Rush Test ACCEPTAB Arterial Blood Right Radial Gas Puncture Site Arterial 0.3 Blood Carboxyhem oglobin Arterial Blood 0.2 Methemoglobin Oxyhemoglobin 97.6 Percent Blood Gas 37.0 Temperature Blood Gas ROOM AIR Modality FiO2 21.0 Blood Gas Ivan GRAY MD Critical Value Read Back Blood Gas MR Notified Whom Blood Gas 03/30/2019 3:23: Notified Time 10 AM Test 03/30/19 01:41 03/30/19 03:14 03/30/19 04:01 03/30/19 05:30 Bedside Glucose 198 143 164 White Blood 19.4 #H Count Red Blood Count 4.09 L Hemoglobin 11.5 L Hematocrit 37.2 Mean Corpuscular 91.0 Volume Mean Corpuscular 28.1 L Hemoglobin Mean Corpuscular 30.9 L Hemoglobin Divya nt Red Cell 17.6 H Distribution Width Platelet Count 221 Mean Platelet 10.9 H Volume Immature 3.700 H Granulocytes % Neutrophils % 76.2 Lymphocytes % 8.9 L Monocytes % 10.7 Eosinophils % 0.0 Basophils % 0.5 Nucleated Red 0.0 Blood Cells % Immature 0.710 H Granulocytes # Neutrophils # 14.8 H Lymphocytes # 1.7 Monocytes # 2.1 H Eosinophils # 0.0 Basophils # 0.1 Nucleated Red 0.0 Blood Cells # Urine Color YELLOW Urine Clarity CLOUDY A Urine pH 5.0 Urine Specific 1.013 [place] Urine Ketones NEGATIVE Urine Nitrite NEGATIVE Urine Bilirubin NEGATIVE Urine NEGATIVE Urobilinogen Urine Leukocyte NEGATIVE Esterase Urine 2 Microscopic RBC Urine 13 H Microscopic WBC Urine Squamous FEW Epithelial Cells Urine Bacteria FEW A Urine Mucus FEW A Urine Hemoglobin NEGATIVE Urine Random 78.00 Creatinine Urine Random 29 L Sodium Urine 0.75 Protein/Creatini ne Ratio Urine Glucose 1+ H Urine Total 1+ H Protein Sodium Level 143 Potassium Level 5.1 Chloride Level 114 H Carbon Dioxide 21 Level Anion Gap 8 Blood Urea 53 H Nitrogen Creatinine 2.37 H Est Glomerular Filtrat Rate mL/min Glucose Level 94 # Hemoglobin A1c 5.7 Calcium Level 8.5 Magnesium Level 2.1 Total Bilirubin 0.5 Direct Bilirubin 0.00 Indirect 0.5 Bilirubin Aspartate Amino 1206 H Transf (AST/SGOT ) Alanine 1048 H Aminotransferase (ALT/SGPT) Alkaline 107 Phosphatase Total Protein 6.6 Albumin 3.4 Globulin 3.20 Albumin/Globulin 1.06 Ratio Triglycerides 70 Level Cholesterol 97 L Level LDL Cholesterol, 47 Calculated HDL Cholesterol 36 Cholesterol/HDL 2.6 Ratio Procalcitonin 1.17 H Thyroid 6.630 H Stimulating Hormone (TSH) Digoxin Level 3.4 *H Test 03/30/19 08:28 03/30/19 11:49 03/30/19 11:53 Bedside Glucose 102 102 Lactic Acid 1.5 Level Imaging Imaging ECG demonstrates ventricular paced rhythm at 70 bpm, QRS 178 ms, nonspecific ST of normalities Medications Medications Current Medications Norepinephrine 250 ml @ 1.875 mls/ hr TITRATE IV Last administered on 03/29/19 at 20:48; Admin Dose 1.875 MLS/HR; Start 03/29/19 at 20:30 Sodium Chloride 1,000 ml @ 80 mls/hr [id number] IV Last administered on 03/30/19at 12:57; Admin Dose 80 MLS/HR; Start 03/29/19 at 22:59 Ondansetron HCl (Zofran Inj) 4 mg Q6H PRN IV NAUSEA AND/OR VOMITING; Start 03/29/19 at 23:00 Albuterol/ Ipratropium (Duoneb) 3 ml Q4H RESP THERAPY NEB Last administered on 03/30/19at 07:54; Admin Dose 3 ML; Start 03/30/19 at 01:00 Acetaminophen (Tylenol Liquid) 650 mg Q6H PRN PO PAIN LEVEL 1-3 OR FEVER; Start 03/29/19 at 23:00 Vancomycin HCl (Vanco Iv Per Pharmacy) VANCOMYCIN PER PHARMACY PER PROTOCOL XX ; Start 03/30/19 at 00:00 Miscellaneous Information (* Miscellaneous Pharmacy Order) Treatment of Hypoglycemia: 1.BG 51... Per protocol XX ; Start 03/30/19 at 00:00 Dextrose (D50w Syringe) 25 ml Q15M PRN IV .DECREASED GLUCOSE Last administered on 03/30/19at 03:29; Admin Dose 25 ML; Start 03/30/19 at 00:00 Dextrose (D50w Syringe) 50 ml Q15M PRN IV .DECREASED GLUCOSE; Start 03/30/19 at 00:00 Phenylephrine HCl 250 ml @ 75 mls/hr TITRATE IV ; Start 03/30/19 at 01:00 Dextrose (D50w Syringe) ONCE PRN IV DECREASED GLUCOSE; Start 03/30/19 at 03:00 Diagnostic Test (Pha) (Accu-Chek) 1 ea Q4H XX ; Start 03/30/19 at 08:00 Meropenem/Sodium Chloride 50 ml @ 100 mls/hr Q12 IVPB Last administered on 03/30/19at 08:47; Admin Dose 100 MLS/HR; Start 03/30/19 at 09:00 Heparin Sodium (Porcine) (Heparin (5000 Units/1ml)) 5,000 unit BID SC ; Start 03/30/19 at 21:00 Famotidine (Pepcid Iv) 20 mg DAILY IV ; Start 03/31/19 at 09:00 Joshua Jones DO March 30, 2019 13:05
--- NOTE | 2019-03-30 17:34 | CONS ---
DATE OF ADMISSION: 03/29/2019 DATE OF CONSULTATION: 03/30/2019 TYPE OF CONSULTATION: Nephrology. REASON FOR CONSULTATION: Acute kidney injury, possible CKD. PHYSICIAN REQUESTING CONSULT: Magdy Gray MD HISTORY OF PRESENT ILLNESS: This is a 78-year-old female with a past medical history of hypertension , history of arrhythmia, history of diabetes, who presents to [facility] with alter ed level of consciousness. The patient was found by family down with unknown duration. The patient was transferred to the emergency room for evaluation. The patient upon arrival had laboratory drawn and noted to be hyperkalemic. The patient was also noted to have digoxin toxicity. The patient was also noted to be hypotensive and in shock. The patient was given IV fluids, antibiotic therapy as we ll as Digibind in the emergency room. The patient was subsequently transferred to intensive care [facility] for continued care. In terms of patient's renal history per the patient and patient's family, she has no known history of chronic kidney disease or acute kidney injury. The patient denies any recent episodes of hemoptysis , hematemesis or hematochezia. PAST MEDICAL HISTORY: As stated above, history of coronary artery disease, history of hypertension, history of arrhythmia, history of CVA, history of AFib and aortic stenosis. PAST SURGICAL HISTORY: Status post pacemaker, thyroidectomy. FAMILY HISTORY: No family history of kidney disease. SOCIAL HISTORY: Does not drink, smoke or do drugs. MEDICATIONS: Have been reviewed. ALLERGIES: HAVE BEEN REVIEWED. PLEASE SEE LIST. REVIEW OF SYSTEMS: Unable to do adequate review of systems as the patient is altered. Pertinent pos itives as obtained by reviewing medical records, speaking to hospital staff, stated in HPI, otherwise negative. PHYSICAL EXAMINATION: VITAL SIGNS: Blood pressure is 124/85, respiration 23, pulse 77, temperature 98.7. HEENT: Head is normocephalic. NECK: Supple. HEART: Regular rate. LUNGS: Show diminished breath sounds at the base. ABDOMEN: Soft, nontender to palpation without rebound or guarding. EXTREMITIES: Negative for clubbing, cyanosis. No edema. DERMATOLOGIC: No rashes. MUSCULOSKELETAL: No joint effusions. NEUROLOGIC: Limited exam due to lack of patient's cooperation. LABORATORY DATA: Have been reviewed. IMAGING STUDIES: Have been reviewed. ASSESSMENT AND PLAN: This is a 78-year-old female who presents with: 1. Renal failure, possible nonoliguric acute kidney injury versus chronic kidney disease. Etiology of acute kidney injury is likely multifactorial secondary to hemodynamics, sepsis, volume depletion. The patient's urinalysis is reviewed. No active sediment. The patient had FENa less than 1% consis tent with prerenal etiology due to volume depletion, i.e. sepsis. Imaging studies also were reviewed . There is no evidence of hydronephrosis. At this point, continue current treatment plan. Continue aggressive IV hydration. Continue pressors to maintain MAP of 65. Continue antibiotic therapy. We will monitor closely. 2. Hyperkalemia. Etiology was secondary to digoxin toxicity and acute injury. The patient's potass ium levels have improved. We will continue to monitor. 3. Anemia. Monitor hemoglobin and hematocrit levels. 4. Mineral bone disorder. Monitor calcium and phosphorus levels. 5. Septic shock. Etiology and source are unclear. Continue current medical management. Continue b road spectrum antibiotics. Continue pressor support. Continue antibiotic therapy. Trend lactic aci d levels. Follow up procalcitonin level. 6. Acute encephalopathy. Etiology is toxic metabolic. Continue to monitor. 7. Coronary artery disease. Continue medical management. 8. Arrhythmia, status post pacemaker. Continue to monitor. 9. History of cerebrovascular accident. 10. History of atrial fibrillation. The patient is currently rate controlled. Continue to monitor. 11. Digoxin toxicity. The patient is status post Digibind. Continue to monitor. Digoxin medicatio n has been held. Thank you, Dr. Gray, for this interesting consult. It will be a pleasure to follow patient with y ou throughout the hospital course. Dictated By: DONNELL GENAO DO NR/NTS Conf#: [id number] DID#: [id number] CC: MAGDY GRAY MD; MEHUL MILLER MD;*End*
[2019-03-30] MEDS: BALSAM PERU/CASTOR OIL 60 GM TUBE TOP SCH (20:47)
--- NOTE | 2019-03-30 21:15 | RADRPT ---
Echocardiogram Report Patient Name: Louisa MORANnt ID: [id number] : 1940 (78y 9m)Study Date: 03/30/2019 11:19:15 AM Gender: FAccession #: [id number] Tech: Olga Lidia Crowe RDCS Location: 103 Ref.Physician: MILVIA GRAY Height(Cm): BSA: Weight(Kg): Quality: AdequateOrder Physician: MILVIA GRAY Account #: Procedures: Echocardiographic Report: Transthoracic echocardiogram with complete 2D, M-Mode, and doppler examination. Indications: Cardiomegaly. Measurements: 2D/M Mode Doppler Measurement Value Normal Range Measurement Value Normal Range LVIDd 2D 4.2 [ 3.8 - 5.2 ] cm OLGA VTI 1.3 [ 2.0 - 4.0 ] cm2 LVIDs 2D 3.3 [ 2.2 - 3.5 ] cm AV Mean [place] 2.0 [ 70.0 - 90.0 ] cm/sec LVPWd 2D 1.0 [ 0.6 - 0.9 ] cm AV Mean PG 18.0 [ 2.0 - 4.0 ] mmHg IVSd 2D 1.4 [ 0.6 - 0.9 ] cm AV VTI 52.0 cm AoR Diam 2D 2.6 [ 2.3 - 3.1 ] cm AI Peak PG 65.0 mmHg EDV 2D 78.6 [ 46.0 - 106.0 ] ml AI Peak [place] 4.0 cm/sec ESV 2D 42.5 [ 14.0 - 42.0 ] ml AI PHT 463.0 msec EF 2D 45.9 [ 54.0 - 74.0 ] percent LVOT Mean [place] 0.8 [ 60.0 - 80.0 ] cm/sec LA Dimen 2D 4.6 [ 2.7 - 3.8 ] cm LVOT Mean PG 3.0 [ 1.0 - 3.0 ] mmHg LVOT Diam 2.0 [ 2.1 - 2.5 ] cm LVOT Peak [place] 1.0 [ 70.0 - 110.0 ] cm/sec LVOT Peak PG 4.0 [ 2.0 - 6.0 ] mmHg LVOT VTI 20.8 [ 20.0 - 30.0 ] cm MV E Peak [place] 1.0 [ 60.0 - 130.0 ] cm/sec MV A Peak [place] 0.2 [ 100.0 - 120.0 ] cm/sec MV E/A 4.5 [ 0.8 - 1.5 ] ratio MV Decel Time 137 [ 104 - 258 ] msec Lat E` P[place] 0.1 [ 10.0 - 15.0 ] cm/sec Lateral E/E` 8.3 [ 1.0 - 2.0 ] ratio MV E/A 4.5 [ 0.8 - 1.5 ] ratio TR Peak [place] 3.2 [ 100.0 - 280.0 ] cm/sec TR Peak PG 41.0 mmHg RVSP 56.0 [ 10.0 - 36.0 ] mmHg RA Pressure 15.0 mmHg Findings: Left Ventricle: Lower limits of normal systolic function. Normal left ventricular cavity size. Moderate asymmetric septal hypertrophy. Ejection fraction is visually estimated at 50 %. Abnormal Diastolic Function. Right Ventricle: Normal right ventricular size. Normal right ventricular systolic function. Linear artifact in right ventricle suggestive of catheter, pacer lead, or ICD lead. Left Atrium: There is moderate enlargement of left atrium. Right Atrium: There is severe enlargement of right atrium. Mitral Valve: Mitral valve leaflets appear mildly thickened. Mild mitral annular calcification. Mild to moderate mitral valve regurgitation. Aortic Valve: Mild aortic stenosis. Aortic cusps appear moderately calcified. Moderate aortic valve regurgitation. Tricuspid Valve: Normal appearance of the tricuspid valve. The estimated Peak RVSP is 56 mmHg. There is mild to moderate tricuspid regurgitation. Pulmonic Valve: Normal pulmonic valve appearance. There is mild pulmonic regurgitation. Pericardium: Normal pericardium with no significant pericardial effusion. Aorta: Normal aortic root. IVC: Dilated IVC without respiratory collapse consistent with elevated right atrial pressure. Conclusions: Lower limits of normal systolic function. Normal left ventricular cavity size. Moderate asymmetric septal hypertrophy. Ejection fraction is visually estimated at 50 %. Abnormal Diastolic Function. Normal right ventricular size. Normal right ventricular systolic function. Linear artifact in right ventricle suggestive of catheter, pacer lead, or ICD lead. There is moderate enlargement of left atrium. There is severe enlargement of right atrium. Mild to moderate mitral valve regurgitation. Mild aortic stenosis. Moderate aortic valve regurgitation. The estimated Peak RVSP is 56 mmHg. There is mild to moderate tricuspid regurgitation. Normal pericardium with no significant pericardial effusion. Electronically Signed By: Joshua Jones 2019-03-30 21:13:59 PDT
[2019-03-30] MEDS: HEPARIN 5,000 UNIT/1 ML VIAL SC SCH (21:22)
[2019-03-31] VITALS (23 sets, daily range): BP systolic 120–164; BP diastolic 54–98; PULSE 74–144; RESP 16–34
[2019-03-31] MEDS: SOD CHLORIDE 0.9% 1,000 ML IV SCH ×2 (00:57→20:14)
[2019-03-31] MEDS: ALBUTEROL/IPRATROPIUM (NEB) 3 ML AMP NEB SCH ×5 (01:18→17:21)
[2019-03-31] MEDS: ACCU-CHEK XX SCH ×4 (04:00→12:00)
--- NOTE | 2019-03-31 07:16 | CONS ---
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 neck is supple doubt pt has meningitis AMS can be part of her dig toxicity 03/31 - much improved 2) sepsis with elevated lactic acid continue with vanco/merrem but currently not finding a source for an infection CXR was neg, u/a was fairly benign too, abd exam is unimpressive and doubt she has meningitis hypoperfusion is part of dig toxicity and may be the cause of her elevated lactic acid I have ordered procalcitonin 03/31 - procalcitonin is elevated but improved CT chest suggests pneumonia and she has recent hx of vomiting continue with vanco/merrem, if nasal is neg for MRSA will d/c vanco urine cx is NGTD 3) Dig toxicity with elevated potassium AMS and hypoperfusion are also the hallmarks for dig toxicity 03/31 - improved 4) renal insufficiency no baseline creatinine is noted but in light of dig toxicity there is likely an acute component u/a does not suggest infection 03/31 - improved with hydration and urine cx is NGTD 5) hypothermia this has improved and cause is not elucidated yet 03/31 - resolved and slight temp is noted likely lung is the source blood cx remain NGTD 6) CAD with pacer troponin was neg 7) hypothyroidism 8) probable aspiration pneumonia 03/31 - CT suggests possible infiltrate with effusion procalcitonin is elevated and so far blood cx are NGTD continue with vanco/merrem if nasal for MRSA is neg will d/c vanco Consultation Date/Type/Reason Admit Date/Time March 29, 2019 at 22:58 Initial Consult Date 03/30/19 Type of Consult ID Date/Time of Note DATE: 03/31/19 TIME: 07:10 24 HR Interval Summary Free Text/Dictation pt is more alert she has a minimal non productive cough according to the nurse no N, V, D no CP she has some pain to the R knee pt asked if she was at [facility], she was told that this is [facility] Exam/Review of Systems Exam Vitals Vital Signs Date Temp Pulse Resp B/P (MAP) Pulse Ox O2 O2 Flow FiO2 Time Delivery Rate 03/31/19 87 24 144/54 100 Room Air 06:00 (84) 03/31/19 21 05:33 03/31/19 98.2 04:00 03/31/19 2.0 01:18 Intake and Output 03/30/19 03/30/19 03/31/19 1515:00 23:00 07:00 IntakeIntake Total 991.875 ml 1690 ml 1140 ml OutputOutput Total 500 ml 700 ml BalanceBalance 991.875 ml 1190 ml 440 ml Constitutional: alert Eyes: nl sclera ENMT: mucosa pink and moist Respiratory: clear to auscultation Cardiovascular: regular rate and rhythm Gastrointestinal: soft, non-tender Extremities: other (R knee, no redness or swelling or increase in heat) Results Result Diagram: 03/31/19 0500 03/31/19 0500 Results 24hrs Laboratory Tests Test 03/30/19 08:28 03/30/19 11:49 03/30/19 11:53 03/30/19 18:15 Bedside Glucose 102 102 Lactic Acid Level 1.5 1.5 Test 03/30/19 18:16 03/30/19 20:42 03/30/19 21:18 03/31/19 00:57 Bedside Glucose 84 70 102 84 Test 03/31/19 05:00 03/31/19 05:35 White Blood Count 10.0 # Red Blood Count 3.21 #L Hemoglobin 9.0 #L Hematocrit 28.7 #L Mean Corpuscular 89.4 Volume Mean Corpuscular 28.0 L Hemoglobin Mean Corpuscular 31.4 L Hemoglobin Concent Red Cell 17.3 H Distribution Width Platelet Count 140 # Mean Platelet Volume 9.6 Immature 0.700 H Granulocytes % Neutrophils % 63.1 Lymphocytes % 25.1 Monocytes % 8.4 Eosinophils % 2.0 Basophils % 0.7 Nucleated Red Blood 0.0 Cells % Immature 0.070 H Granulocytes # Neutrophils # 6.3 Lymphocytes # 2.5 Monocytes # 0.8 Eosinophils # 0.2 Basophils # 0.1 Nucleated Red Blood 0.0 Cells # Sodium Level 140 Potassium Level 3.7 Chloride Level 112 H Carbon Dioxide Level 24 Anion Gap 4 L Blood Urea Nitrogen 28 #H Creatinine 1.15 #H Est Glomerular Filtrat Rate mL/min Glucose Level 73 Calcium Level 8.4 Magnesium Level 1.9 Total Bilirubin 0.6 Direct Bilirubin 0.00 Indirect Bilirubin 0.6 Aspartate Amino 496 H Transf (AST/SGOT) Alanine 539 H Aminotransferase (AL T/SGPT) Alkaline Phosphatase 91 Total Protein 5.9 L Albumin 3.0 L Globulin 2.90 Albumin/Globulin 1.03 Ratio Procalcitonin 0.92 H Random Vancomycin 5.6 Level Digoxin Level 1.2 # Bedside Glucose 88 Medications Medication Current Medications Norepinephrine 250 ml @ 1.875 mls/ hr TITRATE IV Last administered on 03/29/19at 20:48; Admin Dose 1.875 MLS/HR; Start 03/29/19 at 20:30 Sodium Chloride 1,000 ml @ 80 mls/hr [id number] IV Last administered on 03/31/19at 00:57; Admin Dose 80 MLS/HR; Start 03/29/19 at 22:59 Ondansetron HCl (Zofran Inj) 4 mg Q6H PRN IV NAUSEA AND/OR VOMITING; Start 03/29/19 at 23:00 Albuterol/ Ipratropium (Duoneb) 3 ml Q4H RESP THERAPY NEB Last administered on 03/31/19at 05:32; Admin Dose 3 ML; Start 03/30/19 at 01:00 Acetaminophen (Tylenol Liquid) 650 mg Q6H PRN PO PAIN LEVEL 1-3 OR FEVER; Start 03/29/19 at 23:00 Vancomycin HCl (Vanco Iv Per Pharmacy) VANCOMYCIN PER PHARMACY PER PROTOCOL XX ; Start 03/30/19 at 00:00 Miscellaneous Information (* Miscellaneous Pharmacy Order) Treatment of Hypoglycemia: 1.BG 51... Per protocol XX ; Start 03/30/19 at 00:00 Dextrose (D50w Syringe) 25 ml Q15M PRN IV .DECREASED GLUCOSE Last administered on 03/30/19at 03:29; Admin Dose 25 ML; Start 03/30/19 at 00:00 Dextrose (D50w Syringe) 50 ml Q15M PRN IV .DECREASED GLUCOSE; Start 03/30/19 at 00:00 Phenylephrine HCl 250 ml @ 75 mls/hr TITRATE IV ; Start 03/30/19 at 01:00 Dextrose (D50w Syringe) ONCE PRN IV DECREASED GLUCOSE; Start 03/30/19 at 03:00 Diagnostic Test (Pha) (Accu-Chek) 1 ea Q4H XX ; Start 03/30/19 at 08:00 Meropenem/Sodium Chloride 50 ml @ 100 mls/hr Q12 IVPB Last administered on 03/30/19at 20:45; Admin Dose 100 MLS/HR; Start 03/30/19 at 09:00 Heparin Sodium (Porcine) (Heparin (5000 Units/1ml)) 5,000 unit BID SC Last administered on 03/30/19at 21:22; Admin Dose 5,000 UNIT; Start 03/30/19 at 21:00 Famotidine (Pepcid Iv) 20 mg DAILY IV ; Start 03/31/19 at 09:00 MARS ROSS MD March 31, 2019 07:16
--- NOTE | 2019-03-31 08:54 | PN ---
DATE: 03/31/2019 SUBJECTIVE: The patient is stable, no events overnight. The patient is currently on pressor support . Urinary output has been adequate. OBJECTIVE: VITAL SIGNS: Blood pressure is 144/54, respirations 24, pulse 77, temperature 98.2. HEENT: Head is normocephalic. NECK: Supple. HEART: Regular rate. LUNGS: Show diminished breath sounds at the base. ABDOMEN: Soft, nontender to palpation without rebound or guarding. EXTREMITIES: Negative for clubbing, cyanosis, no edema. DERMATOLOGIC: No rashes. MUSCULOSKELETAL: No joint effusion. NEUROLOGIC: No change in exam. MEDICATIONS: Reviewed. LABORATORY DATA: From 03/31/2019 was reviewed. ASSESSMENT AND PLAN: 1. Nonoliguric acute kidney injury with unknown baseline creatinine. Etiology of acute kidney injur y is secondary to sepsis, volume depletion, hemodynamics. The patient's renal function has improved with IV fluids, antibiotic therapy. The patient is currently on pressor support. At this point, cat l continue current treatment plan, supportive care, renally dose all medications. We will deescalate IV hydration. 2. Hyperkalemia secondary to digoxin toxicity, acute kidney injury, improved. Continue to monitor. 3. Anemia. Continue to monitor hemoglobin and hematocrit levels. 4. Mineral bone disorder. Monitor calcium and phosphorus levels. 5. Sepsis, status post shock. The patient is currently on pressor support. Continue current antibi otic regimen. Follow up cultures. 6. Acute encephalopathy, etiology is toxic metabolic. Mental status is improving. Continue to erica tor. 7. History of coronary artery disease. Continue medical management. 8. History of arrhythmia. Continue pacemaker. 9. History of cerebrovascular accident. 10. Atrial fibrillation, currently rate controlled. Continue medical management. 11. Digoxin toxicity, improving. Dictated By: DONNELL GENAO DO NR/NTS Conf#: [id number] DID#: [id number] CC: MILVIA GARY MD; MEHUL MILLER MD;*EndCC*
[2019-03-31] MEDS ORDERED: FAMOTIDINE 20 MG INJ IV SCH (09:00)
[2019-03-31] MEDS: MEROPENEM 500MG/50 ML (PMX) 50 ML IVPB SCH (09:27)
[2019-03-31] MEDS: HEPARIN 5,000 UNIT/1 ML VIAL SC SCH (09:29)
[2019-03-31] MEDS: BALSAM PERU/CASTOR OIL 60 GM TUBE TOP SCH (09:30)
--- NOTE | 2019-03-31 12:55 | PN ---
Date/Time of Note Date/Time of Note DATE: 03/31/19 TIME: 12:48 Assessment/Plan VTE Prophylaxis Risk score (from Ns)>0 risk: 10 SCD applied (from Ns): Yes Pharmacological prophylaxis: apixaban Lines/Catheters IV Catheter Type (from Nrsg): Central Line Central line still needed: Yes Urinary Cath still in place: Yes Reason Cath still needed: terminal illness/intractable pain Assessment/Plan Assessment/Plan 1. Septic shock, unknown source - Possibly secondary to dehydration from gastroenteritis - CXR negative for pneumonia but CT suspicious for RLL disease - Lactic acid normalized - ID on board and appreciate recommendations. Continue current medications - Abdominal imaging studies suggestive of gastritis - off pressor support 2. ?Digoxin toxicity- resolved - given dose of digifab - Cardiology consultation appreciated and cleared for transfer to [place] 3. Hyperkalemia - resolved 4. Acute metabolic encephalopathy- resolving 5. YAN on CKD- improving - Nephrology consultation appreciated. improving with IVF - US shows normal kidney size - avoid nephrotoxic agents 6. h/o afib - holding digoxin - paced - On Eliquis 7. CAD - continue home medications - Cardiology on board 8. Transaminitis- improving - possibly dehydration related - will continue trending - US liver normal 9. Disposition - Medically stable for transfer to [place] Result Diagram: 03/31/19 0500 03/31/19 0500 Results 24hrs Laboratory Tests Test 03/30/19 18:15 03/30/19 18:16 03/30/19 20:42 03/30/19 21:18 Lactic Acid Level 1.5 Bedside Glucose 84 70 102 Test 03/31/19 00:57 03/31/19 05:00 03/31/19 05:35 03/31/19 09:33 Bedside Glucose 84 88 80 White Blood Count 10.0 # Red Blood Count 3.21 #L Hemoglobin 9.0 #L Hematocrit 28.7 #L Mean Corpuscular 89.4 Volume Mean Corpuscular 28.0 L Hemoglobin Mean Corpuscular 31.4 L Hemoglobin Concent Red Cell 17.3 H Distribution Width Platelet Count 140 # Mean Platelet Volume 9.6 Immature 0.700 H Granulocytes % Neutrophils % 63.1 Lymphocytes % 25.1 Monocytes % 8.4 Eosinophils % 2.0 Basophils % 0.7 Nucleated Red Blood 0.0 Cells % Immature 0.070 H Granulocytes # Neutrophils # 6.3 Lymphocytes # 2.5 Monocytes # 0.8 Eosinophils # 0.2 Basophils # 0.1 Nucleated Red Blood 0.0 Cells # Sodium Level 140 Potassium Level 3.7 Chloride Level 112 H Carbon Dioxide Level 24 Anion Gap 4 L Blood Urea Nitrogen 28 #H Creatinine 1.15 #H Est Glomerular Filtrat Rate mL/min Glucose Level 73 Calcium Level 8.4 Magnesium Level 1.9 Total Bilirubin 0.6 Direct Bilirubin 0.00 Indirect Bilirubin 0.6 Aspartate Amino 496 H Transf (AST/SGOT) Alanine 539 H Aminotransferase (AL T/SGPT) Alkaline Phosphatase 91 Total Protein 5.9 L Albumin 3.0 L Globulin 2.90 Albumin/Globulin 1.03 Ratio Procalcitonin 0.92 H Random Vancomycin 5.6 Level Digoxin Level 1.2 # Test 03/31/19 12:27 Bedside Glucose 91 Subjective 24 Hr Interval Summary Free Text/Dictation Patient is doing well and denies any acute issues. Son at bedside and plan of care discussed. No acute overnight events. Exam/Review of Systems Exam Vitals Vital Signs Date Temp Pulse Resp B/P (MAP) Pulse Ox O2 O2 Flow FiO2 Time Delivery Rate 03/31/19 81 12:00 03/31/19 20 100 21 09:12 03/31/19 144/54 Room Air 06:00 (84) 03/31/19 98.2 04:00 03/31/19 2.0 01:18 Intake and Output 03/30/19 03/30/19 03/31/19 1515:00 23:00 07:00 IntakeIntake Total 991.875 ml 1690 ml 1140 ml OutputOutput Total 500 ml 700 ml BalanceBalance 991.875 ml 1190 ml 440 ml Exam General: No acute distress. answering questions appropriately Neck: Supple Lungs: Clear to auscultation bilaterally no crackles rales or wheezing Heart: Paced rhythm, systolic murmur Abdomen: Soft , nontender, nondistended , bowel sounds are present. No guarding no rebound tenderness Extremities: Normal to inspection, no edema no cyanosis, muscle wasting Skin: no lesions appreciated Results Results 24hrs Laboratory Tests Test 03/30/19 18:15 03/30/19 18:16 03/30/19 20:42 03/30/19 21:18 Lactic Acid Level 1.5 Bedside Glucose 84 70 102 Test 03/31/19 00:57 03/31/19 05:00 03/31/19 05:35 03/31/19 09:33 Bedside Glucose 84 88 80 White Blood Count 10.0 # Red Blood Count 3.21 #L Hemoglobin 9.0 #L Hematocrit 28.7 #L Mean Corpuscular 89.4 Volume Mean Corpuscular 28.0 L Hemoglobin Mean Corpuscular 31.4 L Hemoglobin Concent Red Cell 17.3 H Distribution Width Platelet Count 140 # Mean Platelet Volume 9.6 Immature 0.700 H Granulocytes % Neutrophils % 63.1 Lymphocytes % 25.1 Monocytes % 8.4 Eosinophils % 2.0 Basophils % 0.7 Nucleated Red Blood 0.0 Cells % Immature 0.070 H Granulocytes # Neutrophils # 6.3 Lymphocytes # 2.5 Monocytes # 0.8 Eosinophils # 0.2 Basophils # 0.1 Nucleated Red Blood 0.0 Cells # Sodium Level 140 Potassium Level 3.7 Chloride Level 112 H Carbon Dioxide Level 24 Anion Gap 4 L Blood Urea Nitrogen 28 #H Creatinine 1.15 #H Est Glomerular Filtrat Rate mL/min Glucose Level 73 Calcium Level 8.4 Magnesium Level 1.9 Total Bilirubin 0.6 Direct Bilirubin 0.00 Indirect Bilirubin 0.6 Aspartate Amino 496 H Transf (AST/SGOT) Alanine 539 H Aminotransferase (AL T/SGPT) Alkaline Phosphatase 91 Total Protein 5.9 L Albumin 3.0 L Globulin 2.90 Albumin/Globulin 1.03 Ratio Procalcitonin 0.92 H Random Vancomycin 5.6 Level Digoxin Level 1.2 # Test 03/31/19 12:27 Bedside Glucose 91 Medications Medication Current Medications Norepinephrine 250 ml @ 1.875 mls/ hr TITRATE IV Last administered on 03/29/19at 20:48; Admin Dose 1.875 MLS/HR; Start 03/29/19 at 20:30 Sodium Chloride 1,000 ml @ 30 mls/hr Q24H IV Last administered on 03/31/19at 00:57; Admin Dose 80 MLS/HR; Start 03/29/19 at 22:59 Ondansetron HCl (Zofran Inj) 4 mg Q6H PRN IV NAUSEA AND/OR VOMITING; Start 03/29/19 at 23:00 Albuterol/ Ipratropium (Duoneb) 3 ml Q4H RESP THERAPY NEB Last administered on 03/31/19at 09:12; Admin Dose 3 ML; Start 03/30/19 at 01:00 Acetaminophen (Tylenol Liquid) 650 mg Q6H PRN PO PAIN LEVEL 1-3 OR FEVER; Start 03/29/19 at 23:00 Vancomycin HCl (Vanco Iv Per Pharmacy) VANCOMYCIN PER PHARMACY PER PROTOCOL XX ; Start 03/30/19 at 00:00 Miscellaneous Information (* Miscellaneous Pharmacy Order) Treatment of Hypoglycemia: 1.BG 51... Per protocol XX ; Start 03/30/19 at 00:00 Dextrose (D50w Syringe) 25 ml Q15M PRN IV .DECREASED GLUCOSE Last administered on 03/30/19at 03:29; Admin Dose 25 ML; Start 03/30/19 at 00:00 Dextrose (D50w Syringe) 50 ml Q15M PRN IV .DECREASED GLUCOSE; Start 03/30/19 at 00:00 Phenylephrine HCl 250 ml @ 75 mls/hr TITRATE IV ; Start 03/30/19 at 01:00 Dextrose (D50w Syringe) ONCE PRN IV DECREASED GLUCOSE; Start 03/30/19 at 03:00 Diagnostic Test (Pha) (Accu-Chek) 1 ea Q4H XX ; Start 03/30/19 at 08:00 Meropenem/Sodium Chloride 50 ml @ 100 mls/hr Q12 IVPB Last administered on 03/31/19at 09:27; Admin Dose 100 MLS/HR; Start 03/30/19 at 09:00 Famotidine (Pepcid Iv) 20 mg DAILY IV Last administered on 03/31/19at 09:41; Admin Dose 20 MG; Start 03/31/19 at 09:00 Apixaban (Eliquis) 5 mg BID PO ; Start 03/31/19 at 21:00; Status MEHUL CHAVEZ MD March 31, 2019 12:55
--- NOTE | 2019-03-31 13:04 | PDOCDIS ---
Discharge Instructions DIAGNOSIS Discharge Diagnosis 1. Septic shock, unknown source, possibly viral enteritis vs digoxin toxicity vs medication induce dehydration 2. ?Digoxin toxicity- resolved 3. Hyperkalemia- resolved 4. Acute metabolic encephalopathy- improved 5. YAN on CKD- improving 6. h/o afib- stable 7. CAD 8. Transaminitis- resolving CONDITION [id number] Patient Condition: [id number] Stable HOME CARE INSTRUCTIONS: [id number] Diet Instructions: [id number] Low Fat /Cholesterol FOLLOW UP/APPOINTMENTS Follow-up Plan 1. Follow up with your primary care physician in 1-2 weeks 2. Continue all care per [facility] recommendations MEHUL MILLER MD March 31, 2019 13:04
--- NOTE | 2019-03-31 13:19 | DS ---
Date/Time of Note Date/Time of Note DATE: 03/31/19 TIME: 13:06 Discharge Summary Admission/Discharge Info Admit Date/Time March 29, 2019 at 22:58 Discharge Date/Time 03/31/19 Discharge Diagnosis 1. Septic shock, unknown source, possibly viral enteritis vs digoxin toxicity vs medication induce dehydration 2. ?Digoxin toxicity- resolved 3. Hyperkalemia- resolved 4. Acute metabolic encephalopathy- improved 5. YAN on CKD- improving 6. h/o afib- stable 7. CAD 8. Transaminitis- resolving Consults Cardiology- Dr. Jones Nephrology- Dr. Cordova Infectious disease- Dr. David Isaac of Present Illness cc: altered Chief the following history was obtained from the ED physician documentation, as patient was unable to give adequate history given her clinical condition The patient is a 78-year-old female, presenting to the ER because of altered level of consciousness, unknown duration when the family found her. Patient was awake and alert at the bedside, she was able to state her name. As per the ED physician, the history was initially obtained from the EMS, later obtained from the daughter who did not live with her, does not know much about her medical problems. I was able to speak to [facility] physician who informed ED physician that she was discharged from [facility] about 2 weeks ago for sepsis. Patient also was complaining of right hip pain. Patient was noted to be in sepsis with severely elevated lactic acid. Patient also had a digoxin level that was drawn which came back elevated at 3. Patient was started on levophed, central line was also placed by the ED physician. Allergies: Penicillin Hospital Course Patient was admitted to ICU for close monitoring given digoxin toxicity and pressor support in setting of hypotension. She was also found with elevated lactic acid and procalcitonin levels. She was given a dose of Digifab which helped normalized digoxin levels and medication was held. Cardiology was consulted and recommended holding digoxin and AV robles blocking agents. Patient was also evaluated by Nephrology given acute renal insufficiency which improved significantly during hospitalization after gentle IV fluid resuscitation. Patient was becoming more alert and oriented and was weaned off pressor support. She was tolerating PO intake but still with moments of lethargy. CT scan A/P was suspicious for gastroenteritis which most likely contributed to dehydration as well as hctz which patient was on at home. Vitals remained stable but patient still with mild YAN and transaminitis. She was cleared for transfer from Cardiology standpoint. Her lactic acid normalized and procalcitonin was trending downward. Patient is stable for transfer to [place] for continued treatment of acute gastroenteritis and acute renal failure. Home Meds Reported Medications Cefpodoxime Proxetil* (Cefpodoxime Proxetil*) 200 Mg Tablet, 200 MG PO Q12H 03/30/19 Hydrochlorothiazide (Hydrochlorothiazide) 25 Mg Tablet, 25 MG PO QAM for 100 Days, #50 03/30/19 Potassium Chloride (K-Tab) 10 Meq Tablet.sa, 30 MEQ PO BID for 100 Days, #600 03/30/19 Verapamil Hcl* (Verapamil ER*) 240 Mg Tablet.er, 240 MG PO QAM for 100 Days, #100 03/30/19 Montelukast Sodium* (Montelukast Sodium*) 10 Mg Tablet, 10 MG PO DAILY for 90 Days, #90 03/30/19 Losartan Potassium* (Losartan Potassium*) 50 Mg Tablet, 50 MG PO BID for 23 Days, #46 03/30/19 Famotidine* (Famotidine*) 20 Mg Tablet, 20 MG PO BID for 23 Days, #46 03/30/19 Digoxin* (Digitek*) 125 Mcg Tablet, 125 MCG PO QAM for 7 Days 03/30/19 Metoprolol Tartrate* (Lopressor*) 50 Mg Tab, 50 MG PO BID for 23 Days, #46 03/30/19 Atorvastatin Calcium (Atorvastatin Calcium) 20 Mg Tablet, 20 MG PO DAILY for 23 Days, #23 03/30/19 Pramipexole* (Pramipexole*) 0.125 Mg Tablet, 1 TAB PO BID TAKE 1 TABLET MY MOUTH ABOUT 45MIN AFTER DINNER and TAKE 1 TAB BEFORE SLEEP 03/30/19 Follow-up Plan 1. Follow up with your primary care physician in 1-2 weeks 2. Continue all care per [place] recommendations Primary Care Provider Not On Staff Doctor Time spent on discharge: > 30 minutes Pending Labs Laboratory Tests Test 03/30/19 18:15 03/30/19 18:16 03/30/19 20:42 03/30/19 21:18 Lactic Acid 1.5 Level mmol/L (0.5-2.0 ) Bedside 84 70 102 Glucose mg/dL (70-220) mg/dL (70-220) mg/dL (70-220) Test 03/31/19 00:57 03/31/19 05:00 03/31/19 05:35 03/31/19 09:33 Bedside 84 88 80 Glucose mg/dL (70-220) mg/dL (70-220) mg/dL (70-220) White Blood 10.0 Count 10^3/ul (4.8-1 0.8) Red Blood 3.21 Count 10^6/ul (4.20- 5.40) Hemoglobin 9.0 g/dl (12.0-16. 0) Hematocrit 28.7 % (37.0-47.0) Mean 89.4 Corpuscular fl (82.0-101.0 Volume ) Mean 28.0 Corpuscular pg (29.0-33.0) Hemoglobin Mean 31.4 Corpuscular g/dl (32.0-37. Hemoglobin Conc 0) ent Red Cell 17.3 Distribution % (11.5-14.5) Width Platelet Count 140 10^3/UL (140-4 15) Mean Platelet 9.6 Volume fl (7.4-10.4) Immature 0.700 Granulocytes % % (0.001-0.429 ) Neutrophils % 63.1 % (39.0-77.0) Lymphocytes % 25.1 % (15.0-51.0) Monocytes % 8.4 % (0.0-11.0) Eosinophils % 2.0 % (0.0-7.0) Basophils % 0.7 % (0.0-2.0) Nucleated Red 0.0 Blood Cells % /100WBC (0.0-0 .0) Immature 0.070 Granulocytes # 10^3/ul (0.0-0 .031) Neutrophils # 6.3 10^3/ul (1.6-7 .5) Lymphocytes # 2.5 10^3/ul (0.8-2 .9) Monocytes # 0.8 10^3/ul (0.3-0 .9) Eosinophils # 0.2 10^3/ul (0.0-0 .5) Basophils # 0.1 10^3/ul (0.0-0 .1) Nucleated Red 0.0 Blood Cells # 10^3/ul (0.0-0 .0) Sodium Level 140 mmol/L (135-14 4) Potassium 3.7 Level mmol/L (3.5-5. 1) Chloride Level 112 mmol/L (97-110 ) Carbon Dioxide 24 Level mmol/L (21-31) Anion Gap 4 (5-13) Blood Urea 28 Nitrogen mg/dl (7-20) Creatinine 1.15 mg/dl (0.44-1. 00) Est Glomerular mL/min (>60) Filtrat Rate mL/min Glucose Level 73 mg/dl (70-220) Calcium Level 8.4 mg/dl (8.4-10. 2) Magnesium 1.9 Level mg/dl (1.7-2.5 ) Total 0.6 Bilirubin mg/dl (0.2-1.3 ) Direct 0.00 Bilirubin mg/dl (0.00-0. 20) Indirect 0.6 Bilirubin mg/dl (0-1.1) Aspartate Amino 496 Transf (AST/SGO IU/L (15-46) T) Alanine 539 Aminotransferas IU/L (13-69) e (ALT/SGPT) Alkaline 91 Phosphatase IU/L (42-121) Total Protein 5.9 g/dl (6.1-8.1) Albumin 3.0 g/dl (3.3-4.9) Globulin 2.90 g/dl (1.3-3.2) Albumin/Globuli 1.03 n Ratio Procalcitonin 0.92 ng/mL (0.00-0. 10) Random 5.6 ug/ml Vancomycin Level Digoxin Level 1.2 ng/ml (1.0-2.0 ) Test 03/31/19 12:27 Bedside 91 Glucose mg/dL (70-220) MEHUL MILLER MD March 31, 2019 13:19
--- NOTE | 2019-03-31 13:54 | CONS ---
Assessment/Plan Assessment/Plan Hospital Course (Demo Recall) SIRS Hypotension, resolved Hyperkalemia with acute kidney injury-improved Cardiomyopathy with left ventricular ejection fraction 50% Elevated digoxin level Encephalopathy History atrial fibrillation History pacemaker History of CVA -Patient with altered mental status and laboratory studies with elevated lactic levels, digoxin level, hyperkalemia, acute kidney injury as well as hypotension. -Blood pressure trend has overall improved, would not restart digoxin given abnormal renal function and possible digoxin toxicity -We will start low-dose beta-yu and titrate as blood pressure and heart rate permits -Okay to transfer to [place] from a cardiac standpoint Consultation Date/Type/Reason Admit Date/Time March 29, 2019 at 22:58 Initial Consult Date 03/30/19 Type of Consult Cardiology Date/Time of Note DATE: 03/31/19 TIME: 13:52 24 HR Interval Summary Free Text/Dictation Denies shortness of breath, palpitations Exam/Review of Systems Vital Signs Vitals Vital Signs Date Temp Pulse Resp B/P (MAP) Pulse Ox O2 O2 Flow FiO2 Time Delivery Rate 03/31/19 81 12:00 03/31/19 20 100 21 09:12 03/31/19 144/54 Room Air 06:00 (84) 03/31/19 98.2 04:00 03/31/19 2.0 01:18 Intake and Output 03/30/19 03/30/19 03/31/19 1515:00 23:00 07:00 IntakeIntake Total 991.875 ml 1690 ml 1140 ml OutputOutput Total 500 ml 700 ml BalanceBalance 991.875 ml 1190 ml 440 ml Exam Constitutional: alert (Following commands, no apparent distress), frail Head: normocephalic Respiratory: other (Coarse breath sounds bilaterally, no wheezing) Cardiovascular: irregular rhythm, systolic murmur Gastrointestinal: soft, non-tender, bowel sounds Extremities: other (No significant edema) Labs Result Diagram: 03/31/19 0500 03/31/19 0500 Results 24hrs Laboratory Tests Test 03/30/19 18:15 03/30/19 18:16 03/30/19 20:42 03/30/19 21:18 Lactic Acid Level 1.5 Bedside Glucose 84 70 102 Test 03/31/19 00:57 03/31/19 05:00 03/31/19 05:35 03/31/19 09:33 Bedside Glucose 84 88 80 White Blood Count 10.0 # Red Blood Count 3.21 #L Hemoglobin 9.0 #L Hematocrit 28.7 #L Mean Corpuscular 89.4 Volume Mean Corpuscular 28.0 L Hemoglobin Mean Corpuscular 31.4 L Hemoglobin Concent Red Cell 17.3 H Distribution Width Platelet Count 140 # Mean Platelet Volume 9.6 Immature 0.700 H Granulocytes % Neutrophils % 63.1 Lymphocytes % 25.1 Monocytes % 8.4 Eosinophils % 2.0 Basophils % 0.7 Nucleated Red Blood 0.0 Cells % Immature 0.070 H Granulocytes # Neutrophils # 6.3 Lymphocytes # 2.5 Monocytes # 0.8 Eosinophils # 0.2 Basophils # 0.1 Nucleated Red Blood 0.0 Cells # Sodium Level 140 Potassium Level 3.7 Chloride Level 112 H Carbon Dioxide Level 24 Anion Gap 4 L Blood Urea Nitrogen 28 #H Creatinine 1.15 #H Est Glomerular Filtrat Rate mL/min Glucose Level 73 Calcium Level 8.4 Magnesium Level 1.9 Total Bilirubin 0.6 Direct Bilirubin 0.00 Indirect Bilirubin 0.6 Aspartate Amino 496 H Transf (AST/SGOT) Alanine 539 H Aminotransferase (AL T/SGPT) Alkaline Phosphatase 91 Total Protein 5.9 L Albumin 3.0 L Globulin 2.90 Albumin/Globulin 1.03 Ratio Procalcitonin 0.92 H Random Vancomycin 5.6 Level Digoxin Level 1.2 # Test 03/31/19 12:27 Bedside Glucose 91 Medications Medications Current Medications Sodium Chloride 1,000 ml @ 30 mls/hr Q24H IV Last administered on 03/31/19at 00:57; Admin Dose 80 MLS/HR; Start 03/29/19 at 22:59 Ondansetron HCl (Zofran Inj) 4 mg Q6H PRN IV NAUSEA AND/OR VOMITING; Start 03/29/19 at 23:00 Albuterol/ Ipratropium (Duoneb) 3 ml Q4H RESP THERAPY NEB Last administered on 03/31/19at 09:12; Admin Dose 3 ML; Start 03/30/19 at 01:00 Acetaminophen (Tylenol Liquid) 650 mg Q6H PRN PO PAIN LEVEL 1-3 OR FEVER; Start 03/29/19 at 23:00 Vancomycin HCl (Vanco Iv Per Pharmacy) VANCOMYCIN PER PHARMACY PER PROTOCOL XX ; Start 03/30/19 at 00:00 Miscellaneous Information (* Miscellaneous Pharmacy Order) Treatment of Hypoglycemia: 1.BG 51... Per protocol XX ; Start 03/30/19 at 00:00 Dextrose (D50w Syringe) 25 ml Q15M PRN IV .DECREASED GLUCOSE Last administered on 03/30/19at 03:29; Admin Dose 25 ML; Start 03/30/19 at 00:00 Dextrose (D50w Syringe) 50 ml Q15M PRN IV .DECREASED GLUCOSE; Start 03/30/19 at 00:00 Dextrose (D50w Syringe) ONCE PRN IV DECREASED GLUCOSE; Start 03/30/19 at 03:00 Meropenem/Sodium Chloride 50 ml @ 100 mls/hr Q12 IVPB Last administered on 03/31/19at 09:27; Admin Dose 100 MLS/HR; Start 03/30/19 at 09:00 Famotidine (Pepcid Iv) 20 mg DAILY IV Last administered on 03/31/19at 09:41; Admin Dose 20 MG; Start 03/31/19 at 09:00 Apixaban (Eliquis) 5 mg BID PO ; Start 03/31/19 at 21:00 Joshua Jones DO March 31, 2019 13:54
[2019-03-31] MEDS ORDERED: VANCOMYCIN 1 GM 250 ML IVPB SCH (17:30)
[2019-03-31] MEDS ORDERED: METOPROLOL 5 MG INJ IV ONE (18:00)
[2019-03-31] MEDS ORDERED: APIXABAN 5 MG TABLET PO SCH (21:00)
[2019-03-31] MEDS ORDERED: METOPROLOL 25 MG TAB PO SCH (21:00)
[2019-04-01] MEDS ORDERED: VERAPAMIL (SR) 240 MG TAB PO SCH (09:00)
[2019-04-01] MEDS ORDERED: VERAPAMIL (SR) 120 MG TAB PO SCH (09:00)
[2019-04-01] MEDS ORDERED: VANCOMYCIN 500 MG (PMX) 100 ML IVPB SCH (17:00)
== END 2019-03-31 20:31 | disposition other institution (70) | DRG 871 ==
LOC: E/R 19:09 → ICU 22:58 → EDBEDREQSVC 23:50 → EDBEDREQ 23:50
PROVIDERS: ADMIT Family Medicine; ATTEND Internal Medicine
PROC: 02HV33Z Insertion of Infusion Device into Superior Vena Cava, Percutaneous Approach (ICD-10-PCS; principal; 2019-03-30)
PROC: 4A033R1 Measurement of Arterial Saturation, Peripheral, Percutaneous Approach (ICD-10-PCS; 2019-03-30)
DX: A41.9 Sepsis, unspecified organism (principal); R65.21 Severe sepsis with septic shock; G93.41 Metabolic encephalopathy; N17.9 Acute kidney failure, unspecified; E87.1 Hypo-osmolality and hyponatremia; E87.2 Acidosis; I42.9 Cardiomyopathy, unspecified; T68.XXXA Hypothermia, initial encounter; I25.10 Atherosclerotic heart disease of native coronary artery without angina pectoris; I10 Essential (primary) hypertension; I48.91 Unspecified atrial fibrillation; I35.2 Nonrheumatic aortic (valve) stenosis with insufficiency; E87.5 Hyperkalemia; E03.9 Hypothyroidism, unspecified; N18.9 Chronic kidney disease, unspecified; D64.9 Anemia, unspecified; I12.9 Hypertensive chronic kidney disease with stage 1 through stage 4 chronic kidney disease, or unspecified chronic kidney disease; Z86.73 Personal history of transient ischemic attack (TIA), and cerebral infarction without residual deficits; Z88.0 Allergy status to penicillin; Z95.0 Presence of cardiac pacemaker; T46.0X5A Adverse effect of cardiac-stimulant glycosides and drugs of similar action, initial encounter
CPT/HCPCS: 36415; 36600; 70450; 71045; 72170; 73510; 74176; 76700; 76937; 80048; 80053; 80061; 80162; 80202; 80307; 81001; 81003; 82140; 82550; 82570; 82803; 82962; 83036; 83605; 83735; 84145; 84300; 84436; 84443; 84479; 84484; 85025; 85610; 85730; 87081; 87086; 93005; 93306; 94640; 94664; 96365; 96366; 96375; C9113; J0610; J1644; J1815; J2185; J3370; J7030; J7040